=== PATIENT | female | born 1945 | race Caucasian/White ===

== ENCOUNTER 2023-09-28 19:20 | Inpatient (IN) | payer MEDICARE ==
[2023-09-28] MEDS ORDERED: ACETAMINOPHEN TAB 500 MG TAB PO STA (19:45)
--- NOTE | 2023-09-28 20:07 | XR ---
EXAMINATION TYPE: XR chest 2V DATE OF EXAM: 09/28/2023 7:57 PM CLINICAL INDICATION:Female, 78 years old with history of Cough; COMPARISON: None TECHNIQUE: XR chest 2V Frontal and lateral views of the chest. FINDINGS: Lungs/Pleura: Scattered subtle reticular and hazy opacities. No evidence of pneumothorax, focal conso lidation or pleural effusion. Pulmonary vascularity: Unremarkable. Heart/mediastinum: Cardiomediastinal silhouette is unremarkable. Musculoskeletal: No acute osseous pathology. Other findings: None Lines/Tubes: [id number] projecting over the right hemithorax with distal tip at the cavoatrial junction. IMPRESSION: Subtle scattered opacities which may represent an atypical pneumonia versus chronic scarring.
--- NOTE | 2023-09-28 20:25 | ED ---
SOB HPI - General Chief Complaint: Shortness of Breath Stated Complaint: Upper Respiratory Infection Time Seen by Provider: 09/28/23 19:30 Source: patient, EMS, RN notes reviewed Mode of arrival: EMS Limitations: no limitations - History of Present Illness Initial Comments: This is a 78-year-old female who presents to the emergency department for coughing, chest pain, and shortness of breath. Patient was sent over by [facility] for an abnormal chest x-ray. She has been there for about a week for rehab. She was hospitalized for 2 months and states that she is trying to regain her strength. [facility] did a TB test which was negative, however the chest x-ray she had earlier today noted fibrocalcific changes in the left upper lobe, likely residual of tuberculosis. However, they could not exclude active tuberculosis, and she was sent to the emergency department to see if this could be ruled out. She does report coughing, shortness of breath, and left lower rib cage pain for the last 2-3 days. She has not had any blood in her sputum. Denies any known history of tuberculosis. She is immunocompromised with autoimmune hemolytic anemia. States that she treats this with prednisone, 50mg, however Medilokiarae recently ran out. Her hemoglobin typically runs low and she has had multiple blood transfusions because of this. MD Complaint: shortness of breath, cough - Related Data Home Medications Medication Instructions Recorded Confirmed Acetaminophen Tab [Tylenol Tab] 500 mg PO Q8H PRN 09/28/23 09/28/23 Alendronate Sodium [Fosamax] 70 mg PO SA@0500 09/28/23 09/28/23 Apixaban [Eliquis] 5 mg PO BID 09/28/23 09/28/23 Furosemide [Lasix] 20 mg PO DAILY 09/28/23 09/28/23 Guaifenesin/Pseudoephedrne HCl 1 tab PO DIRECTED 09/28/23 09/28/23 [Mucinex D ER 1,200-120 mg Tab] Metoprolol Tartrate [Lopressor] 50 mg PO BID@0700,1900 09/28/23 09/28/23 Multivitamins, Thera [Multivitamin 1 tab PO DAILY 09/28/23 09/28/23 (formulary)] NIFEdipine XL [Procardia Xl] 30 mg PO DAILY 09/28/23 09/28/23 Pantoprazole [Protonix] 40 mg PO BID 09/28/23 09/28/23 Potassium Chloride ER [K-Dur 20] 20 meq PO DIRECTED 09/28/23 09/28/23 Sucralfate [Carafate] 1 gm PO BID@0700,1600 09/28/23 09/28/23 Tamsulosin [Flomax] 0.4 mg PO HS 09/28/23 09/28/23 Allergies Allergy/AdvReac Type Severity Reaction Status Date / Time No Known Allergies Allergy Verified 09/28/23 20:28 Review of Systems ROS Statement: Those systems with pertinent positive or pertinent negative responses have been documented in the HPI. ROS Other: All systems not noted in ROS Statement are negative. Past Medical History Past Medical History: Deep Vein Thrombosis (DVT), Hypertension Past Surgical History: Cholecystectomy Past Alcohol Use History: None Reported Past Drug Use History: None Reported General Exam Limitations: no limitations General appearance: alert, in no apparent distress Head exam: Present: atraumatic, normocephalic, normal inspection Respiratory exam: Present: normal lung sounds bilaterally. Absent: respiratory distress, wheezes, rales, rhonchi, stridor Cardiovascular Exam: Present: regular rate, normal rhythm, normal heart sounds. Absent: systolic murmur, diastolic murmur, rubs, gallop, clicks Neurological exam: Present: alert, oriented X3, CN II-XII intact Psychiatric exam: Present: normal affect, normal mood Skin exam: Present: warm, dry, intact, normal color. Absent: rash Course Vital Signs 09/28/23 09/28/23 19:26 21:05 Temperature 101.9 F H 100.9 F H Pulse Rate 119 H 125 H Respiratory 24 22 Rate Blood Pressure 132/58 102/52 O2 Sat by Pulse 96 95 Oximetry Medical Decision Making - Medical Decision Making This is a 78-year-old female who presents to the emergency department for coughing and shortness of breath. Was pt. sent in by a medical professional or institution? @ -[facility] [place] Did you speak to anyone other than the patient for history? @ -No Did you review nursing and triage notes? @ -Yes, and I agree, it is accurate with regards to the patient's symptoms. Were old charts reviewed? @ -Chest x-ray that the patient had done earlier today stating fibrocalcific changes at the left upper lobe, likely residual of tuberculosis. Active tuberculosis cannot be excluded. Differential Diagnosis? @ -Differential Dyspnea: Coronary syndrome, arrhythmia, tamponade, asthma, COPD, pulmonary embolism, pneumonia, pneumothorax, pulmonary effusion, anaphylaxis, diabetic ketoacidosis, flailed chest, pulmonary contusion, diaphragmatic rupture, anemia, neuromuscular, this is not meant to be an all-inclusive list. EKG interpreted by me (3pts min.)? @ -EKG interpreted by me demonstrating the following: Sinus tachycardia. Ventricular rate 126 beats per minute, [place] interval 129 ms, QRS duration 81 ms, QTC 416 ms. X-rays interpreted by me (1pt min.)? @ -Chest x-ray obtained. My interpretation identifies scattered opacities. CT interpreted by me (1pt min.)? @ -Not obtained U/S interpreted by me (1pt. min.)? @ -Not obtained What testing was considered but not performed? (CT, X-rays, U/S, labs)? Why? @ -None What meds were considered but not given? Why? @ -None Did you discuss the management of the patient with other professionals? @ -Yes, Giuliano Burgess with [facility], who accepts the patient for admission. Did you reconcile home meds? @ -Yes Was smoking cessation discussed for >3mins.? @ -No Was critical care preformed (if so, how long)? @ -No Were there social determinants of health that impacted care today? How? (Homelessness, low income, unemployed, alcoholism, drug addiction, transport ation, low edu. Level, literacy, decrease access to med. care, [facility], rehab)? @ -No Was there de-escalation of care discussed even if they declined? (Discuss DNR or withdrawal of care, Hospice)? @ -No What co-morbidities impacted this encounter? (DM, HTN, Smoking, COPD, CAD, Cancer, CVA, Hep., AIDS, mental health diagnosis, sleep apnea, morbid obesity)? @ -Autoimmune hemolytic anemia, HTN, hx of PE Was patient admitted / discharged? @ -Admitted. Lab work obtained revealing leukocytosis with a white blood cell count of 20.5 and a hemoglobin of 6.6. Patient has a history of autoimmune hemolytic anemia and has required multiple blood transfusions related to this. Currently treats this with prednisone 50 mg daily, which [facility] has recently run out of. One unit of packed red blood cells was ordered along with the patient's dose of prednisone 50 mg. She also has hypokalemia with a potassium of 2.8 and this was replaced with 40 mEq of K-dur. CRP also elevated at 15.8. Chest X-ray reveals subtle scattered opacities suggestive of an atypical pneumonia or chronic scarring. There were no comments on concerns of tuberculosis. Patient tested positive for RSV. She was tachycardic and febrile on arrival. This was treated with IV fluids and Tylenol. Patient admitted to medicine for RSV pneumonia and low hemoglobin level related to autoimmune hemolytic anemia. Given the patient's age with autoimmune status, she was started on antibiotics per the pneumonia protocol in the event there is any bacterial component. Pro-calcitonin ordered with results pending at the time of admission. Undiagnosed new problem with uncertain prognosis? @ -None Drug Therapy requiring intensive monitoring for toxicity (Heparin, Nitro, Insulin, Cardizem)? @ -None Were any procedures done? @ -None Diagnosis/symptom? @ -RSV pneumonia, low hemoglobin, hypokalemia Acute, or Chronic, or Acute on Chronic? @ -Acute Uncomplicated (without systemic symptoms) or Complicated (systemic symptoms)? @ -Complicated Side effects of treatment? @ -None Exacerbation, Progression, or Severe Exacerbation] @ -Not applicable Poses a threat to life or bodily function? @ -Yes This case was discussed in detail with the attending ED physician, Dr. Doty. Presentation, findings, and treatment plan discussed in detail as well. - Lab Data Result diagrams: 09/28/23 20:56 09/28/23 20:56 Lab Results 09/28/23 Range/Units 19:41 Influenza Type A (PCR) Not Detected (Not Detectd) Influenza Type B (PCR) Not Detected (Not Detectd) RSV (PCR) Detected A (Not Detectd) SARS-CoV-2 (PCR) Not Detected (Not Detectd) - Radiology Data Radiology results: report reviewed, image reviewed Disposition Clinical Impression: RSV (respiratory syncytial virus pneumonia), Autoimmune hemolytic anemia, Hypokalemia Disposition: ADMITTED IP TO THIS HOSP
[2023-09-28 21:16] LABS: ALT 17 U/L (4-34); AST 19 U/L (14-36); African American GFR (CKD) >90 (>60 ml/min/1.73 sqM); Albumin 2.7 g/dL (3.5-5.0); Alkaline Phosphatase 122 U/L (38-126); Anion Gap 9 mmol/L; Blood Urea Nitrogen 20 mg/dL (7-17); Calcium 8.2 mg/dL (8.4-10.2); Carbon Dioxide 27 mmol/L (22-30); Chloride 101 mmol/L (98-107); Glucose 100 mg/dL (74-99); Non-African American GFR(CKD) >90 (>60 ml/min/1.73 sqM); Potassium 2.8 mmol/L (3.5-5.1); Sodium 137 mmol/L (137-145); Total Bilirubin 2.8 mg/dL (0.2-1.3)
[2023-09-28 21:29] LABS: C Reactive Protein 15.8 mg/dL (<1.0)
[2023-09-28 21:32] LABS: Anisocytosis Slight; Hypochromasia Slight; MCH 32.8 pg (25.0-35.0); MCHC 34.7 g/dL (31.0-37.0); MCV 94.5 fL (80.0-100.0); Macrocytosis Slight; Mean Platelet Volume 8.4; Platelet Count 381 k/uL (150-450); Poikilocytosis Marked; RBC 2.02 m/uL (3.80-5.40); RDW 19.2 % (11.5-15.5)
[2023-09-28] MEDS ORDERED: POTASSIUM CHLORIDE ER 20 MEQ TAB.ER PO STA (21:32)
[2023-09-28 21:37] LABS: HCT 19.1 % (34.0-46.0); HGB 6.6 gm/dL (11.4-16.0)
[2023-09-28] MEDS ORDERED: NALOXONE 0.4 MG/ML 1 ML VIAL IV PRN (21:52)
[2023-09-28] MEDS ORDERED: HYDROcodone/APAP 5-325MG 1 EACH TAB PO PRN (21:52)
[2023-09-28] MEDS ORDERED: MELATONIN 3 MG TABLET PO PRN (21:52)
[2023-09-28] MEDS ORDERED: ONDANSETRON 4 MG/2 ML VIAL IVP PRN (21:52)
[2023-09-28] MEDS ORDERED: ACETAMINOPHEN TAB 325 MG TAB PO PRN (21:52)
[2023-09-28] MEDS ORDERED: predniSONE 50 MG TAB PO STA (21:53)
[2023-09-28] MEDS ORDERED: PNEUMONIA PROTOCOL UTILIZED 1 EACH MISC PO PRN (21:55)
[2023-09-28] MEDS ORDERED: AZITHROMYCIN 500 MG in SODIUM CHLORIDE 0.9% 250 ML IVPB STA (21:55)
[2023-09-28] MEDS ORDERED: SODIUM CHLORIDE 0.9% 1,000 ML IV STA (21:56)
[2023-09-28 22:00] LABS: Eosinophils # (M) 0.21 k/uL (0-0.7); Lymphocytes # (M) 1.23 k/uL (1.0-4.8); Monocytes # (M) 0.62 k/uL (0-1.0); Neutrophils # (M) 18.45 k/uL (1.3-7.7); Neutrophils % (M) 90 %; Nucleated Red Blood Cells 2 /100 WBC (0-0); Total Cells Counted 100; WBC 20.5 k/uL (3.8-10.6)
[2023-09-28 22:01] LABS: Polychromasia Present; Toxic Vacuolation Present
[2023-09-28 22:02] LABS: Basophilic Stippling Present; Large Platelets Present
[2023-09-28] MEDS ORDERED: ACETAMINOPHEN TAB 500 MG TAB PO PRN (22:22)
[2023-09-28] MEDS ORDERED: APIXABAN 5 MG TAB PO SCH (22:30)
[2023-09-28] MEDS: SODIUM CHLORIDE 0.9% 1,000 ML IV SCH (23:26)
[2023-09-29 01:55] LABS: Appearance,Urine Turbid (Clear); Bacteria,Urine Occasional /hpf; Bilirubin,Urine Negative (Negative); Blood,Urine Small (Negative); Color,Urine Yellow; Glucose,Urine (UA) Negative (Negative); Ketones,Urine Negative (Negative); Leukocyte Esterase,Urine Large (Negative); Mucus,Urine Occasional /hpf; Nitrite,Urine Negative (Negative); Protein,Urine 1+ (Negative); RBC,Urine 9 /hpf (0-5); Specific Gravity,Urine 1.015 (1.001-1.035); Squamous Epithelial Cell,Urine 1 /hpf (0-4); Urobilinogen,Urine <2.0 mg/dL (<2.0); WBC,Urine >182 /hpf (0-5)
[2023-09-29] MEDS ORDERED: NON FORMULARY DRUG (Alendronate Sodium [Fosamax] 70 MG Tablet) PO SCH (05:00)
[2023-09-29] MEDS: PANTOPRAZOLE 40 MG TABLET PO SCH ×2 (06:34→19:06)
[2023-09-29 08:51] LABS: Anisocytosis Slight; Hypochromasia Marked; MCHC 32.3 g/dL (31.0-37.0); MCV 99.1 fL (80.0-100.0); Macrocytosis Slight; Mean Platelet Volume 9.5; Platelet Count 342 k/uL (150-450); Poikilocytosis Moderate; RBC 1.89 m/uL (3.80-5.40); RDW 18.9 % (11.5-15.5)
[2023-09-29 08:55] LABS: HCT 18.7 % (34.0-46.0)
[2023-09-29] MEDS: METOPROLOL TARTRATE 50 MG TAB PO SCH ×2 (09:12→22:11)
[2023-09-29] MEDS: FUROSEMIDE 20 MG TAB PO SCH (09:12)
[2023-09-29] MEDS: SUCRALFATE 1 GM TAB PO SCH ×2 (09:13→22:10)
[2023-09-29] MEDS: POTASSIUM CHLORIDE ER 20 MEQ TAB.ER PO SCH (09:13)
[2023-09-29] MEDS: MULTIVITAMINS, THERA 1 EACH TAB PO SCH (09:13)
[2023-09-29] MEDS: NIFEdipine XL 30 MG TAB.ER.24 PO SCH (09:13)
[2023-09-29] MEDS: AZITHROMYCIN 500 MG TAB PO SCH (10:43)
[2023-09-29 12:17] LABS: Band Neutrophils % 1 %; Lymphocytes # (M) 0.65 k/uL (1.0-4.8); Neutrophils % (M) 94 %; Nucleated Red Blood Cells 1 /100 WBC (0-0); Total Cells Counted 200
[2023-09-29 12:18] LABS: Monocytes # (M) 0.43 k/uL (0-1.0); WBC 21.6 k/uL (3.8-10.6)
[2023-09-29 12:20] LABS: Polychromasia Present
[2023-09-29 12:56] LABS: % Iron Saturation 7.81 (12.00-45.00)
--- NOTE | 2023-09-29 12:57 | P.HPIM ---
History of Present Illness This is a pleasant 78 years old female with multiple medical problems including history of autoimmune hemolytic anemia status post 6-7 times of blood transfusion over the last 3 years, hypertension, deep venous thrombosis on eliquis Patient state that she's been in the [facility]hab for about 2 months because of difficulty walking, improvement as she can get up with health now and she can walk with a walker with little help as well. Both she still needs rehab as she states. She was sent from [facility] for abnormal chest x-ray suspicious for tuberculosis per report which is place and the system now. Patient currently lying in bed on room air, looks comfortable, not tachypnea at rest. She denies dyspnea but she states she has been coughing with clear phlegm for about 3 days About 3 days ago a Beauchamp catheter has placed for her in the rehab but she cannot tell 1. Currently she denies any dysuria urgency, no flank pain or suprapubic pain or tenderness. No headache dizziness weakness or numbness or blurred vision. Patient states that she has history of hemolytic anemia and she received about 67 blood transfusion over the last 2 years and her electronic warfare specialist is Dr. Martines. She denies smoking alcohol or illicit drugs. On admission she had a fever of 101.9. Blood pressure was low normal 102/52, heart rate 99, she is saturating 97% on room air. Echo psychosis 21,000, hemoglobin 6.6 came back down to 6.0. Potassium 2.8, total bilirubin 2.8, AST and ALT are within the reference range. C-reactive protein elevated 15.8 and 4calcitonin 6.7. Folate is 19. Urine analysis looks turbid sample Influenza A and type B, SARS (coronavirus) are and detected, RSV test came back positive Chest x-ray: Septal scattered opacity which may represent an atypical pneumonia versus chronic scarring per neurologist. She was started on Rocephin and Zithromax and emergency room with normal saline at 75 mL/h and she was continued on Eliquis a planned to get one of blood transfusion now Review of Systems Review of systems CONSTITUTIONAL: No fever, no malaise, no fatigue. HEENT: No recent visual problems or hearing problems. Denied any sore throat. CARDIOVASCULAR: No orthopnea, PND, no palpitations, no syncope. PULMONARY: No shortness of breath, no cough, no hemoptysis. GASTROINTESTINAL: No diarrhea, no nausea, no vomiting, no abdominal pain. Normoactive bowel sounds. NEUROLOGICAL: No headaches, no weakness, no numbness. HEMATOLOGICAL: Denies any bleeding or petechiae. GENITOURINARY: Denies any burning micturition, frequency, or urgency. MUSCULOSKELETAL/RHEUMATOLOGICAL: Denies any joint pain, swelling, or any muscle pain. ENDOCRINE: Denies any polyuria or polydipsia. Past Medical History Past Medical History: Deep Vein Thrombosis (DVT), Hypertension Additional Past Medical History / Comment(s): hemolytic anemia History of Any Multi-Drug Resistant Organisms: None Reported Past Surgical History: Cholecystectomy Past Alcohol Use History: None Reported Past Drug Use History: None Reported Medications and Allergies Home Medications Medication Instructions Recorded Confirmed Type Acetaminophen Tab [Tylenol Tab] 500 mg PO Q8H PRN 09/28/23 09/28/23 History Alendronate Sodium [Fosamax] 70 mg PO SA@0500 09/28/23 09/28/23 History Apixaban [Eliquis] 5 mg PO BID 09/28/23 09/28/23 History Furosemide [Lasix] 20 mg PO DAILY 09/28/23 09/28/23 History Guaifenesin/Pseudoephedrne HCl 1 tab PO DIRECTED 09/28/23 09/28/23 History [Mucinex D ER 1,200-120 mg Tab] Metoprolol Tartrate [Lopressor] 50 mg PO BID@0700,1900 09/28/23 09/28/23 History Multivitamins, Thera [Multivitamin 1 tab PO DAILY 09/28/23 09/28/23 History (formulary)] NIFEdipine XL [Procardia Xl] 30 mg PO DAILY 09/28/23 09/28/23 History Pantoprazole [Protonix] 40 mg PO BID 09/28/23 09/28/23 History Potassium Chloride ER [K-Dur 20] 20 meq PO DIRECTED 09/28/23 09/28/23 History Sucralfate [Carafate] 1 gm PO BID@0700,1600 09/28/23 09/28/23 History Tamsulosin [Flomax] 0.4 mg PO HS 09/28/23 09/28/23 History Allergies Allergy/AdvReac Type Severity Reaction Status Date / Time No Known Allergies Allergy Verified 09/28/23 20:28 Physical Exam Vitals: Vital Signs Temp Pulse Pulse Resp BP BP BP 09/29/23 08:26 09/29/23 07:50 97.8 F 102 H 15 113/67 09/29/23 02:00 97.6 F 92 16 106/65 09/29/23 01:45 18 09/28/23 23:30 98 18 112/62 09/28/23 23:20 98.8 F 99 18 109/54 09/28/23 22:30 104 H 20 98/48 09/28/23 22:00 113 H 20 95/49 09/28/23 21:30 118 H 20 99/48 09/28/23 21:05 100.9 F H 125 H 22 102/52 09/28/23 19:45 24 09/28/23 19:26 101.9 F H 119 H 24 132/58 Pulse Ox 09/29/23 08:26 96 09/29/23 07:50 97 09/29/23 02:00 96 09/29/23 01:45 09/28/23 23:30 97 09/28/23 23:20 97 09/28/23 22:30 95 09/28/23 22:00 95 09/28/23 21:30 95 09/28/23 21:05 95 09/28/23 19:45 09/28/23 19:26 96 Intake and Output 09/28/23 09/29/23 09/29/23 22:59 06:59 14:59 Output Total 700 Balance -700 Output: Urine 700 Other: Voiding Method Indwelling Catheter # Voids 450 Weight 70.307 kg GENERAL: The patient is alert and oriented x3, not in any acute distress. Well developed, well nourished. HEENT: Pupils are round and equally reacting to light. EOMI. No scleral icterus. No conjunctival pallor. Normocephalic, atraumatic. No pharyngeal erythema. No thyromegaly. CARDIOVASCULAR: S1 and S2 present. No murmurs, rubs, or gallops. -PULMONARY: Chest is clear to auscultation, no wheezing , no crackles. Bila teral bronchial breath sounds and scattered crepitation -ABDOMEN: Soft, nontender, nondistended, normoactive bowel sounds. No palpable organomegaly. Beauchamp catheter in place- MUSCULOSKELETAL: No joint swelling or deformity. EXTREMITIES: No cyanosis, clubbing, or pedal edema. NEUROLOGICAL: Gross neurological examination did not reveal any focal deficits. SKIN: No rashes. no petechiae. Results CBC & Chem 7: 09/29/23 06:25 09/28/23 20:56 Labs: Abnormal Lab Results - Last 24 Hours (Table) 09/28/23 09/28/23 09/28/23 Range/Units 19:41 20:56 20:56 WBC 20.5 H (3.8-10.6) k/uL RBC 2.02 L (3.80-5.40) m/uL Hgb 6.6 L* (11.4-16.0) gm/dL Hct 19.1 L* (34.0-46.0) % RDW 19.2 H (11.5-15.5) % Neutrophils # (Manual) 18.45 H (1.3-7.7) k/uL Nucleated RBCs 2 H (0-0) /100 WBC Potassium 2.8 L (3.5-5.1) mmol/L BUN 20 H (7-17) mg/dL Creatinine 0.50 L (0.52-1.04) mg/dL Glucose 100 H (74-99) mg/dL Calcium 8.2 L (8.4-10.2) mg/dL Total Bilirubin 2.8 H (0.2-1.3) mg/dL C-Reactive Protein 15.8 H (<1.0) mg/dL Total Protein 5.0 L (6.3-8.2) g/dL Albumin 2.7 L (3.5-5.0) g/dL Procalcitonin (0.02-0.09) ng/mL Urine Appearance (Clear) Urine Protein (Negative) Urine Blood (Negative) Ur Leukocyte Esterase (Negative) Urine RBC (0-5) /hpf Urine WBC (0-5) /hpf Urine WBC Clumps (None) /hpf Urine Bacteria (None) /hpf Urine Mucus (None) /hpf RSV (PCR) Detected A (Not Detectd) Crossmatch 09/28/23 09/28/23 09/29/23 Range/Units 20:56 23:00 00:42 WBC (3.8-10.6) k/uL RBC (3.80-5.40) m/uL Hgb (11.4-16.0) gm/dL Hct (34.0-46.0) % RDW (11.5-15.5) % Neutrophils # (Manual) (1.3-7.7) k/uL Nucleated RBCs (0-0) /100 WBC Potassium (3.5-5.1) mmol/L BUN (7-17) mg/dL Creatinine (0.52-1.04) mg/dL Glucose (74-99) mg/dL Calcium (8.4-10.2) mg/dL Total Bilirubin (0.2-1.3) mg/dL C-Reactive Protein (<1.0) mg/dL Total Protein (6.3-8.2) g/dL Albumin (3.5-5.0) g/dL Procalcitonin 6.76 H (0.02-0.09) ng/mL Urine Appearance Turbid H (Clear) Urine Protein 1+ H (Negative) Urine Blood Small H (Negative) Ur Leukocyte Esterase Large H (Negative) Urine RBC 9 H (0-5) /hpf Urine WBC >182 H (0-5) /hpf Urine WBC Clumps Many H (None) /hpf Urine Bacteria Occasional H (None) /hpf Urine Mucus Occasional H (None) /hpf RSV (PCR) (Not Detectd) Crossmatch See Detail 09/29/23 Range/Units 02:00 WBC (3.8-10.6) k/uL RBC (3.80-5.40) m/uL Hgb (11.4-16.0) gm/dL Hct (34.0-46.0) % RDW (11.5-15.5) % Neutrophils # (Manual) (1.3-7.7) k/uL Nucleated RBCs (0-0) /100 WBC Potassium (3.5-5.1) mmol/L BUN (7-17) mg/dL Creatinine (0.52-1.04) mg/dL Glucose (74-99) mg/dL Calcium (8.4-10.2) mg/dL Total Bilirubin (0.2-1.3) mg/dL C-Reactive Protein (<1.0) mg/dL Total Protein (6.3-8.2) g/dL Albumin (3.5-5.0) g/dL Procalcitonin (0.02-0.09) ng/mL Urine Appearance (Clear) Urine Protein (Negative) Urine Blood (Negative) Ur Leukocyte Esterase (Negative) Urine RBC (0-5) /hpf Urine WBC (0-5) /hpf Urine WBC Clumps (None) /hpf Urine Bacteria (None) /hpf Urine Mucus (None) /hpf RSV (PCR) (Not Detectd) Crossmatch See Detail Thrombosis Risk Factor Assmnt - Choose All That Apply Any of the Below Risk Factors Present?: Yes Each Factor Represents 1 point: Swollen legs (current) Other Risk Factors: Yes Each Risk Factor Represents 3 Points: Age 75 years or older Thrombosis Risk Factor Assessment Total Risk Factor Score: 4 Thrombosis Risk Factor Assessment Level: Moderate Risk Assessment and Plan Assessment: Sepsis with fever and leukocytosis Bilateral atypical pneumonia, versus healthcare associated pneumonia h/o deep venous thrombosis on eliquis Abnormal urine analysis most likely asymptomatic bacteriuria associated with Beauchamp catheter Possible recent history of urinary retention status post Beauchamp catheter about 3- 4 days prior to this hospitalization Plan: Continue with antibiotic, we'll going to consult infectious disease team for antibiotic management Continue with normal saline 75 mL/h Anemia workup Given 2 units of blood transfusion and monitor hemoglobin. Electrolytes per protocol Hematology disease consult Continue with Beauchamp catheter Labs and medication were reviewed.. Continue same treatment. Continue with symptomatic treatment. Resume home medication. Monitor labs and vitals. DVT and GI prophylaxis. Further recommendations as per clinical course of the patient DVT prophylaxis: SCD GI Prophylaxis: PPI Prognosis is guarded
[2023-09-29 13:53] LABS: ALT 16 U/L (8-44); AST 28 U/L (13-35); Albumin 2.9 g/dL (3.8-4.9); Albumin/Globulin Ratio 1.71 Ratio (1.60-3.17); Alkaline Phosphatase 117 U/L (41-126); Bilirubin, Conjugated 0.66 mg/dL (0.20-0.40); Bilirubin,Unconjugated 0.94 mg/dL (0.20-1.00); Blood Urea Nitrogen 17.1 mg/dL (9.0-27.0); Carbon Dioxide 24.7 mmol/L (21.6-31.8); Chloride 107 mmol/L (96-109); Globulin 1.7 g/dL (1.6-3.3); Glucose 152 mg/dL (70-110); Potassium 3.7 mmol/L (3.5-5.5); Sodium 142 mmol/L (135-145); Total Bilirubin 1.6 mg/dL (0.3-1.2); Total Protein 4.6 g/dL (6.2-8.2)
--- NOTE | 2023-09-29 19:38 | P.CONS ---
History of Present Illness - Reason for Consult Consult date: 09/29/23 severe anemia, AIHA and DVT on eliquis Requesting physician: Dion E Sheet - Chief Complaint SOB, CBC at [facility] with severe anemia - History of Present Illness Ms. Garcia is a very pleasant 78-year-old female with multiple comorbidities including AIHA adn DVT on Eliquis, follows with Dr. Cadet and on prednisone 5- 10mg daily at baseline with monthly IVIG for AIHA control, as well as other comorbidites, who was recently hospitalized for surgery for ulceration and dsicharged to [facility] due to prolonged hospitalization and resulting weakness. She was feeling increased weakness and blood work was done which revealed significant anemia which prompted her ER visit. She also had a chest x-ray at outside facility for cough that was suspicious for TB. She comes here and the chest x-ray was repeated which showed scattered opacities concerning for atypical pneumonia versus scarring. Blood work revealed severe hypokalemia with a potassium of 2.8, improved to 3.7 with supplementation. Her hemoglobin was 6.6 and transfusion was ordered however due to her underlying hemolytic anemia a match has not been found in a repeat hemoglobin was 6.0. Her haptoglobin was 37, normal creatinine of 0.5. Her bilirubin was elevated at 2.8, mostly unconjugated. Iron at 128, present saturation, ferritin 4300. Her B12 and folate were normal. Reticulocyte count high 9 with an MCV of 90. Infectious work up including Covid influenza were negative however cars he was positive. She was admitted for further management of her severe anemia and URI with RSV. States that she was possibly taking prednisone 50 mg rehab however a baseline her hemolytic anemia is usually controlled on prednisone 510 milligrams daily. She has not been able to be off of prednisone. She does feel weak with her severe anemia. Past Medical History Past Medical History: Deep Vein Thrombosis (DVT), Hypertension Additional Past Medical History / Comment(s): hemolytic anemia History of Any Multi-Drug Resistant Organisms: None Reported Past Surgical History: Cholecystectomy Past Alcohol Use History: None Reported Past Drug Use History: None Reported Medications and Allergies Home Medications Medication Instructions Recorded Confirmed Type Acetaminophen Tab [Tylenol Tab] 500 mg PO Q8H PRN 09/28/23 09/28/23 History Alendronate Sodium [Fosamax] 70 mg PO SA@0500 09/28/23 09/28/23 History Apixaban [Eliquis] 5 mg PO BID 09/28/23 09/28/23 History Furosemide [Lasix] 20 mg PO DAILY 09/28/23 09/28/23 History Guaifenesin/Pseudoephedrne HCl 1 tab PO DIRECTED 09/28/23 09/28/23 History [Mucinex D ER 1,200-120 mg Tab] Metoprolol Tartrate [Lopressor] 50 mg PO BID@0700,1900 09/28/23 09/28/23 History Multivitamins, Thera [Multivitamin 1 tab PO DAILY 09/28/23 09/28/23 History (formulary)] NIFEdipine XL [Procardia Xl] 30 mg PO DAILY 09/28/23 09/28/23 History Pantoprazole [Protonix] 40 mg PO BID 09/28/23 09/28/23 History Potassium Chloride ER [K-Dur 20] 20 meq PO DIRECTED 09/28/23 09/28/23 History Sucralfate [Carafate] 1 gm PO BID@0700,1600 09/28/23 09/28/23 History Tamsulosin [Flomax] 0.4 mg PO HS 09/28/23 09/28/23 History Allergies Allergy/AdvReac Type Severity Reaction Status Date / Time No Known Allergies Allergy Verified 09/28/23 20:28 Physical Exam Vitals: Vital Signs Temp Pulse Pulse Resp BP BP BP 09/29/23 14:45 97.6 F 91 16 103/62 09/29/23 08:26 09/29/23 07:50 97.8 F 102 H 15 113/67 09/29/23 02:00 97.6 F 92 16 106/65 09/29/23 01:45 18 09/28/23 23:30 98 18 112/62 09/28/23 23:20 98.8 F 99 18 109/54 09/28/23 22:30 104 H 20 98/48 09/28/23 22:00 113 H 20 95/49 09/28/23 21:30 118 H 20 99/48 09/28/23 21:05 100.9 F H 125 H 22 102/52 09/28/23 19:45 24 09/28/23 19:26 101.9 F H 119 H 24 132/58 Pulse Ox 09/29/23 14:45 96 12/16/23 08:26 96 09/29/23 07:50 97 09/29/23 02:00 96 09/29/23 01:45 09/28/23 23:30 97 09/28/23 23:20 97 09/28/23 22:30 95 09/28/23 22:00 95 09/28/23 21:30 95 09/28/23 21:05 95 09/28/23 19:45 09/28/23 19:26 96 Intake and Output 09/29/23 09/29/23 09/29/23 06:59 14:59 22:59 Intake Total 193 Output Total 700 Balance -700 193 Intake: Oral 193 Output: Urine 700 Other: Voiding Method Indwelling Catheter Indwelling Catheter # Voids 450 # Bowel Movements 1 Patient appears in no acute distress. Intermittent coughing during our interview, otherwise no respiratory distress. No overt jaundice. Alert and oriented 3. Results CBC & Chem 7: 09/29/23 06:25 09/29/23 06:25 Labs: Abnormal Lab Results - Last 24 Hours (Table) 09/28/23 09/28/23 09/28/23 Range/Units 19:41 20:56 20:56 WBC 20.5 H (3.8-10.6) k/uL RBC 2.02 L (3.80-5.40) m/uL Hgb 6.6 L* (11.4-16.0) gm/dL Hct 19.1 L* (34.0-46.0) % RDW 19.2 H (11.5-15.5) % Neutrophils # (Manual) 18.45 H (1.3-7.7) k/uL Lymphocytes # (Manual) (1.0-4.8) k/uL Nucleated RBCs 2 H (0-0) /100 WBC Retic Count (0.5-2.0) % Potassium 2.8 L (3.5-5.1) mmol/L BUN 20 H (7-17) mg/dL Creatinine 0.50 L (0.52-1.04) mg/dL BUN/Creatinine Ratio (12.00-20.00) Ratio Glucose 100 H (74-99) mg/dL Calcium 8.2 L (8.4-10.2) mg/dL Iron (50-170) UG/DL TIBC (228-460) UG/DL % Saturation (12.00-45.00) Transferrin (204.0-354.0) mg/dL Ferritin (10.0-291.0) ng/mL Total Bilirubin 2.8 H (0.2-1.3) mg/dL Conjugated Bilirubin (0.20-0.40) mg/dL C-Reactive Protein 15.8 H (<1.0) mg/dL Total Protein 5.0 L (6.3-8.2) g/dL Albumin 2.7 L (3.5-5.0) g/dL Vitamin B12 (200.0-944.0) pg/mL Procalcitonin (0.02-0.09) ng/mL Urine Appearance (Clear) Urine Protein (Negative) Urine Blood (Negative) Ur Leukocyte Esterase (Negative) Urine RBC (0-5) /hpf Urine WBC (0-5) /hpf Urine WBC Clumps (None) /hpf Urine Bacteria (None) /hpf Urine Mucus (None) /hpf RSV (PCR) Detected A (Not Detectd) Crossmatch 09/28/23 09/28/23 09/29/23 Range/Units 20:56 23:00 00:03 WBC (3.8-10.6) k/uL RBC (3.80-5.40) m/uL Hgb (11.4-16.0) gm/dL Hct (34.0-46.0) % RDW (11.5-15.5) % Neutrophils # (Manual) (1.3-7.7) k/uL Lymphocytes # (Manual) (1.0-4.8) k/uL Nucleated RBCs (0-0) /100 WBC Retic Count (0.5-2.0) % Potassium (3.5-5.1) mmol/L BUN (7-17) mg/dL Creatinine (0.52-1.04) mg/dL BUN/Creatinine Ratio (12.00-20.00) Ratio Glucose (74-99) mg/dL Calcium (8.4-10.2) mg/dL Iron 10 L (50-170) UG/DL TIBC 128 L (228-460) UG/DL % Saturation 7.81 L (12.00-45.00) Transferrin 91.2 L (204.0-354.0) mg/dL Ferritin 4322.0 H (10.0-291.0) ng/mL Total Bilirubin (0.2-1.3) mg/dL Conjugated Bilirubin (0.20-0.40) mg/dL C-Reactive Protein (<1.0) mg/dL Total Protein (6.3-8.2) g/dL Albumin (3.5-5.0) g/dL Vitamin B12 1031.0 H (200.0-944.0) pg/mL Procalcitonin 6.76 H (0.02-0.09) ng/mL Urine Appearance (Clear) Urine Protein (Negative) Urine Blood (Negative) Ur Leukocyte Esterase (Negative) Urine RBC (0-5) /hpf Urine WBC (0-5) /hpf Urine WBC Clumps (None) /hpf Urine Bacteria (None) /hpf Urine Mucus (None) /hpf RSV (PCR) (Not Detectd) Crossmatch See Detail 09/29/23 09/29/23 09/29/23 Range/Units 00:42 02:00 06:25 WBC 21.6 H (3.8-10.6) k/uL RBC 1.89 L (3.80-5.40) m/uL Hgb 6.0 L* (11.4-16.0) gm/dL Hct 18.7 L* (34.0-46.0) % RDW 18.9 H (11.5-15.5) % Neutrophils # (Manual) 20.50 H (1.3-7.7) k/uL Lymphocytes # (Manual) 0.65 L (1.0-4.8) k/uL Nucleated RBCs 1 H (0-0) /100 WBC Retic Count (0.5-2.0) % Potassium (3.5-5.1) mmol/L BUN (7-17) mg/dL Creatinine (0.52-1.04) mg/dL BUN/Creatinine Ratio (12.00-20.00) Ratio Glucose (74-99) mg/dL Calcium (8.4-10.2) mg/dL Iron (50-170) UG/DL TIBC (228-460) UG/DL % Saturation (12.00-45.00) Transferrin (204.0-354.0) mg/dL Ferritin (10.0-291.0) ng/mL Total Bilirubin (0.2-1.3) mg/dL Conjugated Bilirubin (0.20-0.40) mg/dL C-Reactive Protein (<1.0) mg/dL Total Protein (6.3-8.2) g/dL Albumin (3.5-5.0) g/dL Vitamin B12 (200.0-944.0) pg/mL Procalcitonin (0.02-0.09) ng/mL Urine Appearance Turbid H (Clear) Urine Protein 1+ H (Negative) Urine Blood Small H (Negative) Ur Leukocyte Esterase Large H (Negative) Urine RBC 9 H (0-5) /hpf Urine WBC >182 H (0-5) /hpf Urine WBC Clumps Many H (None) /hpf Urine Bacteria Occasional H (None) /hpf Urine Mucus Occasional H (None) /hpf RSV (PCR) (Not Detectd) Crossmatch See Detail 09/29/23 09/29/23 Range/Units 06:25 06:25 WBC (3.8-10.6) k/uL RBC (3.80-5.40) m/uL Hgb (11.4-16.0) gm/dL Hct (34.0-46.0) % RDW (11.5-15.5) % Neutrophils # (Manual) (1.3-7.7) k/uL Lymphocytes # (Manual) (1.0-4.8) k/uL Nucleated RBCs (0-0) /100 WBC Retic Count 9.0 H (0.5-2.0) % Potassium (3.5-5.1) mmol/L BUN (7-17) mg/dL Creatinine 0.5 L (0.52-1.04) mg/dL BUN/Creatinine Ratio 34.20 H (12.00-20.00) Ratio Glucose 152 H (74-99) mg/dL Calcium 8.0 L (8.4-10.2) mg/dL Iron (50-170) UG/DL TIBC (228-460) UG/DL % Saturation (12.00-45.00) Transferrin (204.0-354.0) mg/dL Ferritin (10.0-291.0) ng/mL Total Bilirubin 1.6 H (0.2-1.3) mg/dL Conjugated Bilirubin 0.66 H (0.20-0.40) mg/dL C-Reactive Protein (<1.0) mg/dL Total Protein 4.6 L (6.3-8.2) g/dL Albumin 2.9 L (3.5-5.0) g/dL Vitamin B12 (200.0-944.0) pg/mL Procalcitonin (0.02-0.09) ng/mL Urine Appearance (Clear) Urine Protein (Negative) Urine Blood (Negative) Ur Leukocyte Esterase (Negative) Urine RBC (0-5) /hpf Urine WBC (0-5) /hpf Urine WBC Clumps (None) /hpf Urine Bacteria (None) /hpf Urine Mucus (None) /hpf RSV (PCR) (Not Detectd) Crossmatch Assessment and Plan Assessment: 1. RSV infection with pneumonia 2. Autoimmune hemolytic anemia with severe anemia, likely due to a flare of her hemolytic anemia which is likely due to recent URI infection 3. Electrolyte deficiency 4. History of DVT on anticoagulation Plan: Ms. Garcia is a very pleasant 78-year-old female with history of multiple comorbidities including autoimmune hemolytic anemia and DVT on Eliquis, who is here for weakness and cough at rehab, evaluation for this revealing possible TB on chest x-ray and severe anemia. - I suspect her severe anemia is due to hemolytic anemia and doubt that she would benefit from transfusion -We'll start her on prednisone 1 mg/kg (70 mg) and consider giving solumedrol 1gm daily x 3 d if she Hgb continues to trend down, however for now will avoid high dose steroids due to concern for bacterial infection -Monitor CBC and monitor for bleeding -Electrolyte derangement, being supplemented -RSV URI with likely PNA, pt also on antibiotics for PNA - I suspect RSV flared her AIHA -She mentions getting monthly IVIG, will consider IVIG if she does not respond to steroids, however I would like to obtain records from her knitter mechanic to clarify why she receives IVIG monthly, ?hypogammaglobulinemia and to prevent infection or truly for AIHA as pt states? Discussed with patient she is agreeable to the plan. All of her questions were answered.
[2023-09-29] MEDS: guaiFENesin-DM 100-10MG/5ML 10 ML CUP PO PRN (22:10)
[2023-09-29] MEDS: TAMSULOSIN 0.4 MG CAP.ER.24H PO SCH (22:10)
[2023-09-29] MEDS: predniSONE 20 MG TAB PO SCH (22:11)
[2023-09-29] MEDS: SODIUM CHLORIDE 0.9% 1,000 ML IV SCH ×2 (22:13→23:34)
--- NOTE | 2023-09-29 23:07 | P.CONS ---
History of Present Illness - Reason for Consult Consult date: 09/29/23 - History of Present Illness Patient is a 78-year-old female with a past medical history significant for autoimmune hemolytic anemia DVT hypertension apparently the patient did have a prolonged hospitalization at [facility] and subsequently patient was transferred to the local long term patient ap parently did have x-ray done at the long term which was read as fibril calcific changes in the left upper lobe likely residual tuberculosis cannot exclude active tuberculosis and when she has a negative skin test for TB patient has been sent to the ER to see the patient again to rule out for tuberculosis patient will presentation to the hospital have a fever of 101.9 F patient was tachycardic not hypotensive or hypoxic patient did have a white count of 20,000 hemoglobin was 6.6 did have a left shift creatinine was normal liver enzymes are normal procalcitonin 6.76 she also have a indwelling Beauchamp catheter. Recently placed at the long term about 3 days ago and did have a positive UA patient did have a RSV PCR came back positive influenza COVID and Legionella was negative patient did have a chest x-ray scheduled opacity which may represent atypical pneumonia versus chronic scarring infectious disease was consulted for further management patient is currently breathing comfortably on room air patient denies having any chest pain she did have a cough mild to moderate intensity not bringing up any sputum. Denies having any nausea no vomiting no abdominal pain no diarrhea, did not recall any exposure to TB denies having any night sweats chronic cough or hemoptysis Past Medical History Past Medical History: Deep Vein Thrombosis (DVT), Hypertension Additional Past Medical History / Comment(s): hemolytic anemia History of Any Multi-Drug Resistant Organisms: None Reported Past Surgical History: Cholecystectomy Past Alcohol Use History: None Reported Past Drug Use History: None Reported Medications and Allergies Home Medications Medication Instructions Recorded Confirmed Type Acetaminophen Tab [Tylenol Tab] 500 mg PO Q8H PRN 09/28/23 09/28/23 History Alendronate Sodium [Fosamax] 70 mg PO SA@0500 09/28/23 09/28/23 History Apixaban [Eliquis] 5 mg PO BID 09/28/23 09/28/23 History Furosemide [Lasix] 20 mg PO DAILY 09/28/23 09/28/23 History Guaifenesin/Pseudoephedrne HCl 1 tab PO DIRECTED 09/28/23 09/28/23 History [Mucinex D ER 1,200-120 mg Tab] Metoprolol Tartrate [Lopressor] 50 mg PO BID@0700,1900 09/28/23 09/28/23 History Multivitamins, Thera [Multivitamin 1 tab PO DAILY 09/28/23 09/28/23 History (formulary)] NIFEdipine XL [Procardia Xl] 30 mg PO DAILY 09/28/23 09/28/23 History Pantoprazole [Protonix] 40 mg PO BID 09/28/23 09/28/23 History Potassium Chloride ER [K-Dur 20] 20 meq PO DIRECTED 09/28/23 09/28/23 History Sucralfate [Carafate] 1 gm PO BID@0700,1600 09/28/23 09/28/23 History Tamsulosin [Flomax] 0.4 mg PO HS 09/28/23 09/28/23 History Allergies Allergy/AdvReac Type Severity Reaction Status Date / Time No Known Allergies Allergy Verified 09/28/23 20:28 Physical Exam Vitals: Vital Signs Temp Pulse Pulse Resp BP BP BP 09/29/23 08:26 09/29/23 07:50 97.8 F 102 H 15 113/67 09/29/23 02:00 97.6 F 92 16 106/65 09/29/23 01:45 18 09/28/23 23:30 98 18 112/62 09/28/23 23:20 98.8 F 99 18 109/54 09/28/23 22:30 104 H 20 98/48 09/28/23 22:00 113 H 20 95/49 09/28/23 21:30 118 H 20 99/48 09/28/23 21:05 100.9 F H 125 H 22 102/52 09/28/23 19:45 24 09/28/23 19:26 101.9 F H 119 H 24 132/58 Pulse Ox 09/29/23 08:26 96 09/29/23 07:50 97 09/29/23 02:00 96 09/29/23 01:45 09/28/23 23:30 97 09/28/23 23:20 97 09/28/23 22:30 95 09/28/23 22:00 95 09/28/23 21:30 95 09/28/23 21:05 95 09/28/23 19:45 09/28/23 19:26 96 Intake and Output 09/28/23 09/29/23 09/29/23 22:59 06:59 14:59 Intake Total 118 Output Total 700 Balance -700 118 Intake: Oral 118 Output: Urine 700 Other: Voiding Method Indwelling Catheter # Voids 450 # Bowel Movements 1 Weight 70.307 kg Results CBC & Chem 7: 09/29/23 06:25 09/29/23 06:25 Labs: Abnormal Lab Results - Last 24 Hours (Table) 09/28/23 09/28/23 09/28/23 Range/Units 19:41 20:56 20:56 WBC 20.5 H (3.8-10.6) k/uL RBC 2.02 L (3.80-5.40) m/uL Hgb 6.6 L* (11.4-16.0) gm/dL Hct 19.1 L* (34.0-46.0) % RDW 19.2 H (11.5-15.5) % Neutrophils # (Manual) 18.45 H (1.3-7.7) k/uL Lymphocytes # (Manual) (1.0-4.8) k/uL Nucleated RBCs 2 H (0-0) /100 WBC Retic Count (0.5-2.0) % Potassium 2.8 L (3.5-5.1) mmol/L BUN 20 H (7-17) mg/dL Creatinine 0.50 L (0.52-1.04) mg/dL BUN/Creatinine Ratio (12.00-20.00) Ratio Glucose 100 H (74-99) mg/dL Calcium 8.2 L (8.4-10.2) mg/dL Iron (50-170) UG/DL TIBC (228-460) UG/DL % Saturation (12.00-45.00) Transferrin (204.0-354.0) mg/dL Ferritin (10.0-291.0) ng/mL Total Bilirubin 2.8 H (0.2-1.3) mg/dL Conjugated Bilirubin (0.20-0.40) mg/dL C-Reactive Protein 15.8 H (<1.0) mg/dL Total Protein 5.0 L (6.3-8.2) g/dL Albumin 2.7 L (3.5-5.0) g/dL Vitamin B12 (200.0-944.0) pg/mL Procalcitonin (0.02-0.09) ng/mL Urine Appearance (Clear) Urine Protein (Negative) Urine Blood (Negative) Ur Leukocyte Esterase (Negative) Urine RBC (0-5) /hpf Urine WBC (0-5) /hpf Urine WBC Clumps (None) /hpf Urine Bacteria (None) /hpf Urine Mucus (None) /hpf RSV (PCR) Detected A (Not Detectd) Crossmatch 09/28/23 09/28/23 09/29/23 Range/Units 20:56 23:00 00:03 WBC (3.8-10.6) k/uL RBC (3.80-5.40) m/uL Hgb (11.4-16.0) gm/dL Hct (34.0-46.0) % RDW (11.5-15.5) % Neutrophils # (Manual) (1.3-7.7) k/uL Lymphocytes # (Manual) (1.0-4.8) k/uL Nucleated RBCs (0-0) /100 WBC Retic Count (0.5-2.0) % Potassium (3.5-5.1) mmol/L BUN (7-17) mg/dL Creatinine (0.52-1.04) mg/dL BUN/Creatinine Ratio (12.00-20.00) Ratio Glucose (74-99) mg/dL Calcium (8.4-10.2) mg/dL Iron 10 L (50-170) UG/DL TIBC 128 L (228-460) UG/DL % Saturation 7.81 L (12.00-45.00) Transferrin 91.2 L (204.0-354.0) mg/dL Ferritin 4322.0 H (10.0-291.0) ng/mL Total Bilirubin (0.2-1.3) mg/dL Conjugated Bilirubin (0.20-0.40) mg/dL C-Reactive Protein (<1.0) mg/dL Total Protein (6.3-8.2) g/dL Albumin (3.5-5.0) g/dL Vitamin B12 1031.0 H (200.0-944.0) pg/mL Procalcitonin 6.76 H (0.02-0.09) ng/mL Urine Appearance (Clear) Urine Protein (Negative) Urine Blood (Negative) Ur Leukocyte Esterase (Negative) Urine RBC (0-5) /hpf Urine WBC (0-5) /hpf Urine WBC Clumps (None) /hpf Urine Bacteria (None) /hpf Urine Mucus (None) /hpf RSV (PCR) (Not Detectd) Crossmatch See Detail 09/29/23 09/29/23 09/29/23 Range/Units 00:42 02:00 06:25 WBC 21.6 H (3.8-10.6) k/uL RBC 1.89 L (3.80-5.40) m/uL Hgb 6.0 L* (11.4-16.0) gm/dL Hct 18.7 L* (34.0-46.0) % RDW 18.9 H (11.5-15.5) % Neutrophils # (Manual) 20.50 H (1.3-7.7) k/uL Lymphocytes # (Manual) 0.65 L (1.0-4.8) k/uL Nucleated RBCs 1 H (0-0) /100 WBC Retic Count (0.5-2.0) % Potassium (3.5-5.1) mmol/L BUN (7-17) mg/dL Creatinine (0.52-1.04) mg/dL BUN/Creatinine Ratio (12.00-20.00) Ratio Glucose (74-99) mg/dL Calcium (8.4-10.2) mg/dL Iron (50-170) UG/DL TIBC (228-460) UG/DL % Saturation (12.00-45.00) Transferrin (204.0-354.0) mg/dL Ferritin (10.0-291.0) ng/mL Total Bilirubin (0.2-1.3) mg/dL Conjugated Bilirubin (0.20-0.40) mg/dL C-Reactive Protein (<1.0) mg/dL Total Protein (6.3-8.2) g/dL Albumin (3.5-5.0) g/dL Vitamin B12 (200.0-944.0) pg/mL Procalcitonin (0.02-0.09) ng/mL Urine Appearance Turbid H (Clear) Urine Protein 1+ H (Negative) Urine Blood Small H (Negative) Ur Leukocyte Esterase Large H (Negative) Urine RBC 9 H (0-5) /hpf Urine WBC >182 H (0-5) /hpf Urine WBC Clumps Many H (None) /hpf Urine Bacteria Occasional H (None) /hpf Urine Mucus Occasional H (None) /hpf RSV (PCR) (Not Detectd) Crossmatch See Detail 09/29/23 09/29/23 Range/Units 06:25 06:25 WBC (3.8-10.6) k/uL RBC (3.80-5.40) m/uL Hgb (11.4-16.0) gm/dL Hct (34.0-46.0) % RDW (11.5-15.5) % Neutrophils # (Manual) (1.3-7.7) k/uL Lymphocytes # (Manual) (1.0-4.8) k/uL Nucleated RBCs (0-0) /100 WBC Retic Count 9.0 H (0.5-2.0) % Potassium (3.5-5.1) mmol/L BUN (7-17) mg/dL Creatinine 0.5 L (0.52-1.04) mg/dL BUN/Creatinine Ratio 34.20 H (12.00-20.00) Ratio Glucose 152 H (74-99) mg/dL Calcium 8.0 L (8.4-10.2) mg/dL Iron (50-170) UG/DL TIBC (228-460) UG/DL % Saturation (12.00-45.00) Transferrin (204.0-354.0) mg/dL Ferritin (10.0-291.0) ng/mL Total Bilirubin 1.6 H (0.2-1.3) mg/dL Conjugated Bilirubin 0.66 H (0.20-0.40) mg/dL C-Reactive Protein (<1.0) mg/dL Total Protein 4.6 L (6.3-8.2) g/dL Albumin 2.9 L (3.5-5.0) g/dL Vitamin B12 (200.0-944.0) pg/mL Procalcitonin (0.02-0.09) ng/mL Urine Appearance (Clear) Urine Protein (Negative) Urine Blood (Negative) Ur Leukocyte Esterase (Negative) Urine RBC (0-5) /hpf Urine WBC (0-5) /hpf Urine WBC Clumps (None) /hpf Urine Bacteria (None) /hpf Urine Mucus (None) /hpf RSV (PCR) (Not Detectd) Crossmatch Assessment and Plan Plan: 1patient presented hospital with sepsis in this patient who did have a fever t achycardia elevated white count patient did have a cough along with abnormal x- ray concerning for possible pneumonia with a likely to allergies versus a catheter associated UTI patient did tested positive for RSV more likely contributing to some of her symptoms 2-we will try to obtain a sputum for Gram stain and culture 3-check a CT of the chest for better definition abnormality seen on the chest x- ray 4-continue patient on Rocephin and Zithromax We will follow on clinical condition and cultures to further adjust medication if needed Thank you for this consultation we will follow the patient along with you Dictation was produced using [employer] dictation software. please excuse any grammatical, word or spelling errors. Time with Patient: Greater than 30
[2023-09-29] MEDS ORDERED: RX INFO: IV CONTRAST WAS GIVEN 1 EACH MISC MISCELLANE PRN (23:08)
[2023-09-29] MEDS: MEROPENEM 1 GM in SODIUM CHLORIDE 0.9% 100 ML IVPB SCH (23:31)
[2023-09-30] MEDS: PANTOPRAZOLE 40 MG TABLET PO SCH ×2 (06:14→15:57)
[2023-09-30] MEDS: MEROPENEM 1 GM in SODIUM CHLORIDE 0.9% 100 ML IVPB SCH ×2 (07:58→15:56)
[2023-09-30] MEDS: POTASSIUM CHLORIDE ER 20 MEQ TAB.ER PO SCH (07:59)
[2023-09-30] MEDS: AZITHROMYCIN 500 MG TAB PO SCH (07:59)
[2023-09-30] MEDS: SUCRALFATE 1 GM TAB PO SCH ×2 (07:59→21:36)
[2023-09-30] MEDS: METOPROLOL TARTRATE 50 MG TAB PO SCH ×2 (08:00→21:36)
[2023-09-30] MEDS: NIFEdipine XL 30 MG TAB.ER.24 PO SCH (08:00)
[2023-09-30] MEDS: predniSONE 20 MG TAB PO SCH (08:00)
[2023-09-30] MEDS: FUROSEMIDE 20 MG TAB PO SCH (08:00)
[2023-09-30] MEDS: MULTIVITAMINS, THERA 1 EACH TAB PO SCH (08:00)
--- NOTE | 2023-09-30 09:19 | CT ---
EXAMINATION TYPE: CT chest w con CT DLP: 248.90 mGycm, Automated exposure control for dose reduction was used. DATE OF EXAM: 09/30/2023 8:32 AM COMPARISON: 09/28/2023. CLINICAL INDICATION:Female, 78 years old with history of pneumonia , abnormal Xray; PHH, RSV Pneumoni a, abnormal CXR TECHNIQUE: Multiple axial images were obtained through the chest. Sagittal and coronal reformats were created for review. Contrast used:100 mL of Isovue 300 with IV Contrast (None if empty) Oral contrast used: (None if empty) FINDINGS: LUNGS/ PLEURA: Trace bilateral pleural effusions left greater than right. There is associated atelect asis. There is calcifications along the pleura on the left including the left lung apex. No greater t james 4 mm in size pulmonary nodules identified. AIRWAY: Patent and unremarkable. HEART: Mildly enlarged for size. Moderate coronary artery atherosclerosis. MEDIASTINUM: No gross evidence of adenopathy. VASCULATURE: No aortic aneurysm. Right chest wall Ropeda-f-[id number] tip terminating in the superior vena cava. MUSCULOSKELETAL: No acute osseous abnormalities SOFT TISSUES/LYMPH NODES: Unremarkable. LOWER NECK: No significant findings. UPPER ABDOMEN: Postsurgical changes anterior upper abdominal wall. The gallbladder surgically absent. IMPRESSION: 1. No evidence for cavitating lesion to suggest active tuberculosis. 2. Cardiomegaly with trace bilateral pleural effusions correlate for congestive heart failure. Follow up recommendations for incidental pulmonary nodules, if there are any, are per [employer] or [employer]. [email or web address]
[2023-09-30] MEDS ORDERED: FUROSEMIDE 10 MG/ML 4 ML VIAL IV STA (11:45)
--- NOTE | 2023-09-30 11:55 | P.PN ---
Subjective This is a pleasant 78 years old female with multiple medical problems including history of autoimmune hemolytic anemia status post 6-7 times of blood transfusion over the last 3 years, hypertension, deep venous thrombosis on eliquis Patient state that she's been in the [facility]rehab for about 2 months because of difficulty walking, improvement as she can get up with health now and she can walk with a walker with little help as well. Both she still needs rehab as she states. She was sent from [facility] for abnormal chest x-ray suspicious for tuberculosis per report which is place and the system now. Patient currently lying in bed on room air, looks comfortable, not tachypnea at rest. She denies dyspnea but she states she has been coughing with clear phlegm for about 3 days About 3 days ago a Beauchamp catheter has placed for her in the rehab but she cannot tell 1. Currently she denies any dysuria urgency, no flank pain or suprapubic pain or tenderness. No headache dizziness weakness or numbness or blurred vision. Patient states that she has history of hemolytic anemia and she received about 67 blood transfusion over the last 2 years and her forestry faculty member is Dr. Martines. She denies smoking alcohol or illicit drugs. On admission she had a fever of 101.9. Blood pressure was low normal 102/52, heart rate 99, she is saturating 97% on room air. Echo psychosis 21,000, hemoglobin 6.6 came back down to 6.0. Potassium 2.8, total bilirubin 2.8, AST and ALT are within the reference range. C-reactive protein elevated 15.8 and 4calcitonin 6.7. Folate is 19. Urine analysis looks turbid sample Influenza A and type B, SARS (coronavirus) are and detected, RSV test came back positive Chest x-ray: Septal scattered opacity which may represent an atypical pneumonia versus chronic scarring per neurologist. She was started on Rocephin and Zithromax and emergency room with normal saline at 75 mL/h and she was continued on Eliquis a planned to get one of blood transfusion now 09/30/2023 Patient still complains from some tachypnea and coughing but no overt chest pain. She is complaining of from some diarrhea today No abdominal pain, no vomiting She is hemodynamically stable, blood pressure improved, she is currently on room air. No more fever. Labs from today are pending CT of the chest showing no pulmonary cavitary lesion to suspect active DVT but she has trace bilateral pleural effusion suspicious for fluid overload, also she has 4 mm lung nodule. Her pro-calcitonin is elevated 6.7 Her 20. On is pending, urobilinogen was pending, B12 is elevated 10:30, folate is acceptable at 19.4. Anemia studies showing anemia of chronic disease with low TIBC and high ferritin Her blood culture came back positive for resistant E. coli and her antibiotics were switched to meropenem. D5 normal saline was stopped in 1 domes of Lasix IV 4 mg given. 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 However workup for hemolytic anemia was unrevealing with normal haptoglobin and normal indirect bilirubin Review of systems CONSTITUTIONAL: No fever, no malaise, no fatigue. HEENT: No recent visual problems or hearing problems. Denied any sore throat. CARDIOVASCULAR: No orthopnea, PND, no palpitations, no syncope. PULMONARY: No chest wall tenderness, no hemoptysis. GASTROINTESTINAL: no nausea, no vomiting, no abdominal pain. Normoactive bowel sounds. NEUROLOGICAL: No headaches, no weakness, no numbness. Active Medications Generic Name Dose Route Start Last Admin Trade Name Freq PRN Reason Stop Dose Admin Acetaminophen 650 mg 09/28/23 21:52 Acetaminophen Tab 325 Mg Tab PO Q6HR PRN Mild Pain or Fever > 100.5 Hydrocodone Bitart/Acetaminophen 1 each 09/28/23 21:52 09/29/23 00:38 Hydrocodone/Apap 5-325mg 1 Each Tab PO 1 each Q4HR PRN Administration Moderate Pain (Scale 4 to 6) Furosemide 20 mg 09/29/23 09:00 09/30/23 08:00 Furosemide 20 Mg Tab PO 20 mg DAILY RIZWANA Administration Guaifenesin/Dextromethorphan 10 ml 09/29/23 12:40 09/29/23 22:10 Guaifenesin-Dm 100-10mg/5ml 10 Ml Cup PO 10 ml Q6HR PRN Administration Cough Meropenem 1 gm/ Sodium 100 mls @ 33.3 mls/hr 09/30/23 00:00 09/30/23 07:58 Chloride IVPB 33.3 mls/hr Q8HR RIZWANA Administration Protocol Melatonin 3 mg 09/28/23 21:52 Melatonin 3 Mg Tablet PO HS PRN Insomnia Metoprolol Tartrate 50 mg 09/29/23 09:00 09/30/23 08:00 Metoprolol Tartrate 50 Mg Tab PO 50 mg BID RIZWANA Administration Miscellaneous Information 1 each 09/28/23 21:55 Pneumonia Protocol Utilized 1 Each Misc PO ONCE PRN Per Protocol Miscellaneous Information 1 each 09/29/23 23:08 Rx Info: Iv Contrast Was Given 1 Each Misc MISCELLANE 10/01/23 23:08 DAILY PRN Per Protocol Multivitamins 1 each 09/29/23 09:00 09/30/23 08:00 Multivitamins, Thera 1 Each Tab PO 1 each DAILY RIZWANA Administration Naloxone HCl 0.2 mg 09/28/23 21:52 Naloxone 0.4 Mg/Ml 1 Ml Vial IV Q2M PRN Opioid Reversal Nifedipine 30 mg 09/29/23 09:00 09/30/23 08:00 Nifedipine Xl 30 Mg Tab.Er.24 PO 30 mg DAILY RIZWANA Administration Non-Formulary Medication 70 mg 09/29/23 05:00 09/29/23 06:23 Alendronate Sodium [Fosamax] PO Not Given SA@0500 RIZWANA Non-Formulary Medication 1 tab 09/29/23 09:00 09/29/23 19:06 Guaifenesin/Pseudoephedrne Hcl [Mucinex D Er 1,200-120 Mg Tab] PO 10/05/23 21:01 Not Given Q12H RIZWANA Ondansetron HCl 4 mg 09/28/23 21:52 Ondansetron 4 Mg/2 Ml Vial IVP Q8HR PRN Nausea And Vomiting Pantoprazole Sodium 40 mg 09/29/23 07:30 09/30/23 06:14 Pantoprazole 40 Mg Tablet PO 40 mg AC-BID RIZWANA Administration Potassium Chloride 20 meq 09/29/23 09:00 09/30/23 07:59 Potassium Chloride Er 20 Meq Tab.Er PO 10/05/23 09:01 20 meq DAILY RIZWANA Administration Prednisone 70 mg 09/29/23 19:45 09/30/23 08:00 Prednisone 20 Mg Tab PO 70 mg DAILY RIZWANA Administration Sucralfate 1 gm 09/29/23 09:00 09/30/23 07:59 Sucralfate 1 Gm Tab PO 1 gm BID RIZWANA Administration Tamsulosin HCl 0.4 mg 09/29/23 21:00 09/29/23 22:10 Tamsulosin 0.4 Mg Cap.Er.24h PO 0.4 mg HS RIZWANA Administration Objective - Vital Signs Vital signs: Vital Signs Temp 97.8 F 09/30/23 07:00 Pulse 108 H 09/30/23 07:00 Resp 19 09/30/23 07:00 BP 129/70 09/30/23 07:00 Pulse Ox 93 L 09/30/23 07:00 FiO2 Intake & Output 09/29/23 09/30/23 09/30/23 18:59 06:59 18:59 Intake Total 293 118 Output Total 650 Balance 293 -650 118 Intake: Oral 293 118 Output: Urine 650 Other: Voiding Method Indwelling Catheter Indwelling Catheter # Bowel Movements 1 - Exam GENERAL: The patient is alert and oriented x3, not in any acute distress. Well developed, well nourished. HEENT: Pupils are round and equally reacting to light. EOMI. No scleral icterus. No conjunctival pallor. Normocephalic, atraumatic. No pharyngeal erythema. No thyromegaly. CARDIOVASCULAR: S1 and S2 present. No murmurs, rubs, or gallops. -PULMONARY: Chest is clear to auscultation, no wheezing , no crackles. Bilateral harsh breath sound, mildly tachypneics ABDOMEN: Soft, nontender, nondistended, normoactive bowel sounds. No palpable organomegaly. MUSCULOSKELETAL: No joint swelling or deformity. EXTREMITIES: No cyanosis, clubbing, or pedal edema. NEUROLOGICAL: Gross neurological examination did not reveal any focal deficits. SKIN: No rashes. no petechiae. - Labs CBC & Chem 7: 09/29/23 06:25 09/29/23 06:25 Labs: Abnormal Lab Results - Last 24 Hours (Table) 09/29/23 09/29/23 09/29/23 Range/Units 00:03 06:25 06:25 WBC 21.6 H (3.8-10.6) k/uL Neutrophils # (Manual) 20.50 H (1.3-7.7) k/uL Lymphocytes # (Manual) 0.65 L (1.0-4.8) k/uL Nucleated RBCs 1 H (0-0) /100 WBC Retic Count (0.5-2.0) % Creatinine 0.5 L (0.6-1.5) mg/dL BUN/Creatinine Ratio 34.20 H (12.00-20.00) Ratio Glucose 152 H (70-110) mg/dL Calcium 8.0 L (8.7-10.3) mg/dL Iron 10 L (50-170) UG/DL TIBC 128 L (228-460) UG/DL % Saturation 7.81 L (12.00-45.00) Transferrin 91.2 L (204.0-354.0) mg/dL Ferritin 4322.0 H (10.0-291.0) ng/mL Total Bilirubin 1.6 H (0.3-1.2) mg/dL Conjugated Bilirubin 0.66 H (0.20-0.40) mg/dL Total Protein 4.6 L (6.2-8.2) g/dL Albumin 2.9 L (3.8-4.9) g/dL Vitamin B12 1031.0 H (200.0-944.0) pg/mL 09/29/23 Range/Units 06:25 WBC (3.8-10.6) k/uL Neutrophils # (Manual) (1.3-7.7) k/uL Lymphocytes # (Manual) (1.0-4.8) k/uL Nucleated RBCs (0-0) /100 WBC Retic Count 9.0 H (0.5-2.0) % Creatinine (0.6-1.5) mg/dL BUN/Creatinine Ratio (12.00-20.00) Ratio Glucose (70-110) mg/dL Calcium (8.7-10.3) mg/dL Iron (50-170) UG/DL TIBC (228-460) UG/DL % Saturation (12.00-45.00) Transferrin (204.0-354.0) mg/dL Ferritin (10.0-291.0) ng/mL Total Bilirubin (0.3-1.2) mg/dL Conjugated Bilirubin (0.20-0.40) mg/dL Total Protein (6.2-8.2) g/dL Albumin (3.8-4.9) g/dL Vitamin B12 (200.0-944.0) pg/mL Microbiology - Last 24 Hours (Table) 09/28/23 23:00 Blood Culture Gram Stain - Preliminary Blood 09/28/23 23:15 Blood Culture Gram Stain - Preliminary Blood Assessment and Plan Assessment: Sepsis with fever and leukocytosis Bacteremia with resistant E. coli Bilateral atypical pneumonia, versus healthcare associated pneumonia h/o deep venous thrombosis on eliquis Abnormal urine analysis most likely asymptomatic bacteriuria associated with Beauchamp catheter Possible recent history of urinary retention status post Beauchamp catheter about 3- 4 days prior to this hospitalization Plan: Continue with antibiotic, we'll going to consult infectious disease team for antibiotic management. Currently on meropenem Continue with normal saline 75 mL/h Anemia workup Given 2 units of blood transfusion and monitor hemoglobin. Electrolytes per protocol Hematology disease consult Continue with Beauchamp catheter Continue with the prednisone 70 mg per hematology team Resume a liquids was cleared by hematology team Labs and medication were reviewed.. Continue same treatment. Continue with symptomatic treatment. Resume home medication. Monitor labs and vitals. DVT and GI prophylaxis. Further recommendations as per clinical course of the patient DVT prophylaxis: SCD GI Prophylaxis: PPI Prognosis is guarded
[2023-09-30] MEDS ORDERED: guaiFENesin-Coden 100-10MG/5ML 10 ML CUP PO ONE (12:00)
[2023-09-30 14:39] LABS: Reticulocyte % 7.9 % (0.5-2.0)
[2023-09-30 14:42] LABS: Bilirubin,Unconjugated 0.8 mg/dL (0.0-1.1); Total Bilirubin 1.1 mg/dL (0.2-1.3)
[2023-09-30 19:33] LABS: Bilirubin, Conjugated 0.6 mg/dL (0.20-0.40); Total Bilirubin 1.6 mg/dL (0.3-1.2)
[2023-09-30] MEDS: guaiFENesin-DM 100-10MG/5ML 10 ML CUP PO PRN (21:36)
[2023-09-30] MEDS: TAMSULOSIN 0.4 MG CAP.ER.24H PO SCH (21:36)
[2023-10-01] MEDS: MEROPENEM 1 GM in SODIUM CHLORIDE 0.9% 100 ML IVPB SCH ×3 (01:01→17:53)
[2023-10-01] MEDS: PANTOPRAZOLE 40 MG TABLET PO SCH ×2 (06:34→16:50)
[2023-10-01 07:49] LABS: Anisocytosis Moderate; Hypochromasia Marked; MCH 31.6 pg (25.0-35.0); MCHC 32.2 g/dL (31.0-37.0); MCV 98.2 fL (80.0-100.0); Macrocytosis Moderate; Mean Platelet Volume 8.1; Platelet Count 442 k/uL (150-450); Poikilocytosis Marked; RBC 1.91 m/uL (3.80-5.40); RDW 21.6 % (11.5-15.5)
[2023-10-01 07:53] LABS: ALT 16 U/L (4-34); AST 17 U/L (14-36); African American GFR (CKD) >90 (>60 ml/min/1.73 sqM); Albumin 2.8 g/dL (3.5-5.0); Albumin/Globulin Ratio 1.2; Alkaline Phosphatase 114 U/L (38-126); Anion Gap 8 mmol/L; Blood Urea Nitrogen 9 mg/dL (7-17); Calcium 8.4 mg/dL (8.4-10.2); Carbon Dioxide 24 mmol/L (22-30); Chloride 107 mmol/L (98-107); Globulin 2.3 g/dL; Glucose 89 mg/dL (74-99); Non-African American GFR(CKD) >90 (>60 ml/min/1.73 sqM); Sodium 139 mmol/L (137-145); Total Bilirubin 1.3 mg/dL (0.2-1.3); Total Protein 5.1 g/dL (6.3-8.2)
[2023-10-01 07:57] LABS: HCT 18.7 % (34.0-46.0)
[2023-10-01] MEDS: POTASSIUM CHLORIDE ER 20 MEQ TAB.ER PO SCH ×3 (08:40→09:58)
[2023-10-01] MEDS: predniSONE 20 MG TAB PO SCH (08:40)
[2023-10-01] MEDS: METOPROLOL TARTRATE 50 MG TAB PO SCH ×2 (08:41→20:05)
[2023-10-01] MEDS: NIFEdipine XL 30 MG TAB.ER.24 PO SCH (08:41)
[2023-10-01] MEDS: MULTIVITAMINS, THERA 1 EACH TAB PO SCH (08:41)
[2023-10-01] MEDS: SUCRALFATE 1 GM TAB PO SCH ×2 (08:41→20:05)
[2023-10-01 09:04] LABS: Metamyelocytes % 2 %; Myelocytes % 1 %; Neutrophils % (M) 65 %; Nucleated Red Blood Cells 16 /100 WBC (0-0); Total Cells Counted 200
[2023-10-01 09:05] LABS: Lymphocytes # (M) 5.92 k/uL (1.0-4.8); Metamyelocytes # (M) 0.38 k/uL (0); Monocytes # (M) 0.57 k/uL (0-1.0); Myelocytes # (M) 0.19 k/uL (0); Neutrophils # (M) 12.42 k/uL (1.3-7.7); Polychromasia Present; WBC 19.1 k/uL (3.8-10.6)
[2023-10-01] MEDS: guaiFENesin-DM 100-10MG/5ML 10 ML CUP PO PRN (09:09)
[2023-10-01] MEDS ORDERED: Potassium Replacement Protocol 1 EACH MISC MISCELLANE PRN (09:33)
[2023-10-01] MEDS: FUROSEMIDE 20 MG TAB PO SCH (09:57)
[2023-10-01] MEDS ORDERED: IMMUNE GLOBULIN (GAMMAGARD) 5 GM in EMPTY BAG 1 BAG IV ONE (13:00)
[2023-10-01] MEDS ORDERED: IMMUNE GLOBULIN (GAMMAGARD) 30 GM in EMPTY BAG 1 BAG IV ONE (13:00)
--- NOTE | 2023-10-01 13:34 | P.PN ---
Subjective Progress Note Date: 10/01/23 Principal diagnosis: AIHA In f/u today pt is not reporting fevers, headaches, vision changes, nausea or vomiting, bleeding or unusual bruising. Report SOB with exertion, congested cough, no hemoptysis. Objective - Vital Signs Vital signs: Vital Signs Temp 98.2 F 10/01/23 11:21 Pulse 92 10/01/23 11:21 Resp 20 10/01/23 11:21 BP 146/74 10/01/23 11:21 Pulse Ox 92 L 10/01/23 11:21 FiO2 Intake & Output 09/30/23 10/01/23 10/01/23 18:59 06:59 18:59 Intake Total 236 358 Output Total 2350 550 100 Balance -2114 -550 258 Intake: Oral 236 358 Output: Urine 2350 550 100 Other: Voiding Method Indwelling Catheter Indwelling Catheter Indwelling Catheter - Constitutional General appearance: Present: average body habitus, cooperative, no acute distress - EENT Eyes: Present: anicteric sclerae, EOMI ENT: Present: hearing grossly normal, normal oropharynx - Respiratory Respiratory: bilateral: rhonchi (throughout) - Cardiovascular Rhythm: regular Heart sounds: normal: S1, S2 Abnormal Heart Sounds: Absent: systolic murmur, diastolic murmur, rub, S3 Gallop, S4 Gallop, click, other - Peripheral edema leg Peripheral Edema: bilateral: None - Gastrointestinal General gastrointestinal: Present: normal bowel sounds, soft - Neurologic Neurologic: Present: CNII-XII intact - Musculoskeletal Musculoskeletal: Present: strength equal bilaterally - Psychiatric Psychiatric: Present: A&O x's 3, appropriate affect, intact judgment & insight - Labs CBC & Chem 7: 10/01/23 07:27 10/01/23 07:27 Labs: Abnormal Lab Results - Last 24 Hours (Table) 09/29/23 09/29/23 09/30/23 Range/Units 02:00 06:25 14:08 WBC (3.8-10.6) k/uL RBC (3.80-5.40) m/uL Hgb (11.4-16.0) gm/dL Hct (34.0-46.0) % RDW (11.5-15.5) % Neutrophils # (Manual) (1.3-7.7) k/uL Lymphocytes # (Manual) (1.0-4.8) k/uL Metamyelocytes # (Man) (0) k/uL Myelocytes # (Manual) (0) k/uL Nucleated RBCs (0-0) /100 WBC Retic Count 7.9 H (0.5-2.0) % Potassium (3.5-5.1) mmol/L Creatinine (0.52-1.04) mg/dL Total Bilirubin 1.6 H (0.3-1.2) mg/dL Conjugated Bilirubin 0.60 H (0.20-0.40) mg/dL Lactate Dehydrogenase 366 H (120-246) U/L Total Protein (6.3-8.2) g/dL Albumin (3.5-5.0) g/dL Crossmatch See Detail 09/30/23 10/01/23 10/01/23 Range/Units 14:08 07:27 07:27 WBC 19.1 H (3.8-10.6) k/uL RBC 1.91 L (3.80-5.40) m/uL Hgb 6.0 L* (11.4-16.0) gm/dL Hct 18.7 L* (34.0-46.0) % RDW 21.6 H (11.5-15.5) % Neutrophils # (Manual) 12.42 H (1.3-7.7) k/uL Lymphocytes # (Manual) 5.92 H (1.0-4.8) k/uL Metamyelocytes # (Man) 0.38 H (0) k/uL Myelocytes # (Manual) 0.19 H (0) k/uL Nucleated RBCs 16 H (0-0) /100 WBC Retic Count (0.5-2.0) % Potassium 3.0 L (3.5-5.1) mmol/L Creatinine 0.49 L (0.52-1.04) mg/dL Total Bilirubin (0.3-1.2) mg/dL Conjugated Bilirubin (0.20-0.40) mg/dL Lactate Dehydrogenase 338 H (120-246) U/L Total Protein 5.1 L (6.3-8.2) g/dL Albumin 2.8 L (3.5-5.0) g/dL Crossmatch Microbiology - Last 24 Hours (Table) 09/29/23 06:37 Gram Stain - Final Sputum Sputum Culture - Final 09/28/23 23:15 Blood Culture Gram Stain - Final Blood Blood Culture - Final Escherichia coli 09/28/23 23:00 Blood Culture Gram Stain - Final Blood Blood Culture - Final Escherichia coli - Imaging and Cardiology CT scan - chest: report reviewed Assessment and Plan (1) Autoimmune hemolytic anemia Current Visit: Yes Status: Acute Code(s): D59.10 - AUTOIMMUNE HEMOLYTIC ANEMIA, UNSPECIFIED SNOMED Code(s): 312589207 (2) RSV (respiratory syncytial virus pneumonia) Current Visit: Yes Status: Acute Code(s): J12.1 - RESPIRATORY SYNCYTIAL VIRUS PNEUMONIA SNOMED Code(s): 325340903 (3) DVT (deep venous thrombosis) Current Visit: Yes Status: Chronic Priority: Medium Code(s): I82.409 - ACUTE EMBOLISM AND THOMBOS UNSP DEEP VN UNSP LOWER EXTREMITY SNOMED Code(s): 445059395 Plan: AIHA -Labs suggestive of the same -Exacerbated by acute RSV infection -Hgb 6 today-stable from admit, she has not had transfusion yet -Started on prednisone yesterday. Will send order to transfuse with least incompatible blood today -Change to high dose solumedrol for tomorrow's dose, x 3 days, then will return to oral pred dosing -IVIG ordered, discussed with Pharmacist, orders placed for divided dose Leukocytosis -2/2 steroids, will cont to monitor through daily CBCs RSV -ID following and treating DVT -Pending communication with patient's primary Rubber And Pounder to confirm when DVT occurred and anticipated duration of anticoagulation. We will update the chart once we have this information. Dr steelests: I have seen and examined patient, performed H&P, developed impression and plan of care. Discussed with dictator. Agree with documentation, dictated as a scribe.
[2023-10-01] MEDS ORDERED: ALBUTEROL NEBULIZED 2.5 MG/3 ML INHALATION PRN (22:19)
--- NOTE | 2023-10-01 22:20 | P.PN ---
Subjective Progress Note Date: 10/01/23 This is a pleasant 78 years old female with multiple medical problems including history of autoimmune hemolytic anemia status post 6-7 times of blood transfusion over the last 3 years, hypertension, deep venous thrombosis on eliquis Patient state that she's been in the snf/rehab for about 2 months because of difficulty walking, improvement as she can get up with health now and she can walk with a walker with little help as well. Both she still needs rehab as she states. She was sent from [facility] for abnormal chest x-ray suspicious for tuberculosis per report which is place and the system now. Patient currently lying in bed on room air, looks comfortable, not tachypnea at rest. She denies dyspnea but she states she has been coughing with clear phlegm for about 3 days About 3 days ago a Beauchamp catheter has placed for her in the rehab but she cannot tell 1. Currently she denies any dysuria urgency, no flank pain or suprapubic pain or tenderness. No headache dizziness weakness or numbness or blurred vision. Patient states that she has history of hemolytic anemia and she received about 67 blood transfusion over the last 2 years and her outside operator is Dr. Martines. She denies smoking alcohol or illicit drugs. On admission she had a fever of 101.9. Blood pressure was low normal 102/52, heart rate 99, she is saturating 97% on room air. Echo psychosis 21,000, hemoglobin 6.6 came back down to 6.0. Potassium 2.8, total bilirubin 2.8, AST and ALT are within the reference range. C-reactive protein elevated 15.8 and 4calcitonin 6.7. Folate is 19. Urine analysis looks turbid sample Influenza A and type B, SARS (coronavirus) are and detected, RSV test came back positive Chest x-ray: Septal scattered opacity which may represent an atypical pneumonia versus chronic scarring per neurologist. She was started on Rocephin and Zithromax and emergency room with normal saline at 75 mL/h and she was continued on Eliquis a planned to get one of blood transfusion now 09/30/2023 Patient still complains from some tachypnea and coughing but no overt chest pain. She is complaining of from some diarrhea today No abdominal pain, no vomiting She is hemodynamically stable, blood pressure improved, she is currently on room air. No more fever. Labs from today are pending CT of the chest showing no pulmonary cavitary lesion to suspect active DVT but she has trace bilateral pleural effusion suspicious for fluid overload, also she has 4 mm lung nodule. Her pro-calcitonin is elevated 6.7 Her 20. On is pending, urobilinogen was pending, B12 is elevated 10:30, folate is acceptable at 19.4. Anemia studies showing anemia of chronic disease with low TIBC and high ferritin Her blood culture came back positive for resistant E. coli and her antibiotics were switched to meropenem. D5 normal saline was stopped in 1 domes of Lasix IV 4 mg given. 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 However workup for hemolytic anemia was unrevealing with normal haptoglobin and normal indirect bilirubin 12.18.2022 Patient has been moved to the stepdown unit from observation. Currently on supportive care for acute RSV infection. Has scattered wheezing.She is also seeing hematology for hemolytic anemia; hgb of 6.0 today patient will receive 1 unit of PRBC additionally she has been transitioned from high dose oral prednisone to solumedrol infusion over 3 day course. She is receiving IV IG. On IV meropenem for E.Coli bacteremia. Review of systems CONSTITUTIONAL: No fever, no malaise, no fatigue. HEENT: No recent visual problems or hearing problems. Denied any sore throat. CARDIOVASCULAR: No orthopnea, PND, no palpitations, no syncope. PULMONARY: No chest wall tenderness, no hemoptysis. GASTROINTESTINAL: no nausea, no vomiting, no abdominal pain. Normoactive bowel sounds. NEUROLOGICAL: No headaches, no weakness, no numbness. PHYSICAL EXAMINATION: GENERAL: The patient is alert and oriented x3, not in any acute distress. Well developed, well nourished. HEENT: Pupils are round and equally reacting to light. EOMI. No scleral icterus. No conjunctival pallor. Normocephalic, atraumatic. No pharyngeal erythema. No thyromegaly. CARDIOVASCULAR: S1 and S2 present. No murmurs, rubs, or gallops. PULMONARY: Chest is clear to auscultation, no wheezing or crackles. ABDOMEN: Soft, nontender, nondistended, normoactive bowel sounds. No palpable organomegaly. MUSCULOSKELETAL: No joint swelling or deformity. EXTREMITIES: No cyanosis, clubbing, or pedal edema. NEUROLOGICAL: Gross neurological examination did not reveal any focal deficits. SKIN: No rashes. Assessment: Sepsis with fever and leukocytosis Acute RSV infection Bacteremia with resistant E. coli Bilateral atypical pneumonia, versus healthcare associated pneumonia h/o deep venous thrombosis on eliquis Abnormal urine analysis most likely asymptomatic bacteriuria associated with Beauchamp catheter Possible recent history of urinary retention status post Beauchamp catheter about 3- 4 days prior to this hospitalization Hemolytic anemia, autoimmune. Hypokalemia Plan: Continue with antibiotic Currently on meropenem, ID following and repeat blood culture are currently pending. Given 2 units of blood transfusion and monitor hemoglobin. She is currently pending blood. Hematology disease consult patient to receive IV infusion solumedrol and IV IG Continue with Beauchamp catheter Continue with the prednisone 70 mg per hematology team Resume eliquis when cleared by hematology team Add albuterol and inhaled steroids. Labs and medication were reviewed.. Continue same treatment. Continue with sym ptomatic treatment. Resume home medication. Monitor labs and vitals. DVT and GI prophylaxis. Further recommendations as per clinical course of the patient DVT prophylaxis: SCD GI Prophylaxis: PPI Full Code The impression and plan of care has been dictated by Tammei Mejia, Nurse Practitioner as directed. Dr. Jarad MD I have performed a history and physical examination and medical decision making of this patient, discussed the same with the dictator, and agree with the dictators assessment and plan as written, documented as a scribe. Based on total visit time, I have performed more than 50% of this visit. Objective - Vital Signs Vital signs: Vital Signs Temp 98.2 F 10/01/23 11:21 Pulse 92 10/01/23 11:21 Resp 20 10/01/23 11:21 BP 146/74 10/01/23 11:21 Pulse Ox 92 L 10/01/23 11:21 FiO2 Intake & Output 09/30/23 10/01/23 10/01/23 18:59 06:59 18:59 Intake Total 236 419.25 Output Total 2350 550 100 Balance -2114 -550 319.25 Intake: Intake, IV Titration 61.25 Amount Immune Globulin ( 61.25 Gammagard) 30 gm In Empty Bag 1 bag @ Per Protocol IV .Q0M ONE Rx#: [id number] Oral 236 358 Output: Urine 2350 550 100 Other: Voiding Method Indwelling Catheter Indwelling Catheter Indwelling Catheter - Labs CBC & Chem 7: 10/01/23 07:27 10/01/23 07:27 Labs: Abnormal Lab Results - Last 24 Hours (Table) 09/29/23 09/29/23 09/30/23 Range/Units 02:00 06:25 14:08 WBC (3.8-10.6) k/uL RBC (3.80-5.40) m/uL Hgb (11.4-16.0) gm/dL Hct (34.0-46.0) % RDW (11.5-15.5) % Neutrophils # (Manual) (1.3-7.7) k/uL Lymphocytes # (Manual) (1.0-4.8) k/uL Metamyelocytes # (Man) (0) k/uL Myelocytes # (Manual) (0) k/uL Nucleated RBCs (0-0) /100 WBC Retic Count 7.9 H (0.5-2.0) % Potassium (3.5-5.1) mmol/L Creatinine (0.52-1.04) mg/dL Total Bilirubin 1.6 H (0.3-1.2) mg/dL Conjugated Bilirubin 0.60 H (0.20-0.40) mg/dL Lactate Dehydrogenase 366 H (120-246) U/L Total Protein (6.3-8.2) g/dL Albumin (3.5-5.0) g/dL Crossmatch See Detail Blood Bank Comment Sent to [facility] A Reference Lab Result See [facility] REF Reports A 09/30/23 10/01/23 10/01/23 Range/Units 14:08 07:27 07:27 WBC 19.1 H (3.8-10.6) k/uL RBC 1.91 L (3.80-5.40) m/uL Hgb 6.0 L* (11.4-16.0) gm/dL Hct 18.7 L* (34.0-46.0) % RDW 21.6 H (11.5-15.5) % Neutrophils # (Manual) 12.42 H (1.3-7.7) k/uL Lymphocytes # (Manual) 5.92 H (1.0-4.8) k/uL Metamyelocytes # (Man) 0.38 H (0) k/uL Myelocytes # (Manual) 0.19 H (0) k/uL Nucleated RBCs 16 H (0-0) /100 WBC Retic Count (0.5-2.0) % Potassium 3.0 L (3.5-5.1) mmol/L Creatinine 0.49 L (0.52-1.04) mg/dL Total Bilirubin (0.3-1.2) mg/dL Conjugated Bilirubin (0.20-0.40) mg/dL Lactate Dehydrogenase 338 H (120-246) U/L Total Protein 5.1 L (6.3-8.2) g/dL Albumin 2.8 L (3.5-5.0) g/dL Crossmatch Blood Bank Comment Reference Lab Result Microbiology - Last 24 Hours (Table) 09/29/23 06:37 Gram Stain - Final Sputum Sputum Culture - Final 09/28/23 23:15 Blood Culture Gram Stain - Final Blood Blood Culture - Final Escherichia coli 09/28/23 23:00 Blood Culture Gram Stain - Final Blood Blood Culture - Final Escherichia coli Assessment and Plan Time with Patient: Less than 30
[2023-10-02] MEDS: MEROPENEM 1 GM in SODIUM CHLORIDE 0.9% 100 ML IVPB SCH ×4 (00:16→23:38)
[2023-10-02] MEDS: PANTOPRAZOLE 40 MG TABLET PO SCH ×2 (06:05→16:37)
[2023-10-02 06:59] LABS: Anisocytosis Moderate; HCT 24.7 % (34.0-46.0); Hypochromasia Moderate; MCH 32.1 pg (25.0-35.0); MCHC 33.3 g/dL (31.0-37.0); MCV 96.3 fL (80.0-100.0); Macrocytosis Slight; Mean Platelet Volume 8.4; Platelet Count 344 k/uL (150-450); Poikilocytosis Marked; RBC 2.57 m/uL (3.80-5.40); RDW 21.6 % (11.5-15.5); WBC 26.1 k/uL (3.8-10.6)
[2023-10-02 07:07] LABS: HGB 8.2 gm/dL (11.4-16.0)
[2023-10-02] MEDS: NIFEdipine XL 30 MG TAB.ER.24 PO SCH (07:39)
[2023-10-02] MEDS: METOPROLOL TARTRATE 50 MG TAB PO SCH ×3 (07:39→20:00)
[2023-10-02] MEDS: POTASSIUM CHLORIDE ER 20 MEQ TAB.ER PO SCH (07:39)
[2023-10-02] MEDS: SUCRALFATE 1 GM TAB PO SCH ×2 (07:39→19:55)
[2023-10-02] MEDS: FUROSEMIDE 20 MG TAB PO SCH (07:39)
[2023-10-02] MEDS: MULTIVITAMINS, THERA 1 EACH TAB PO SCH (07:39)
[2023-10-02 08:20] LABS: African American GFR (CKD) >90 (>60 ml/min/1.73 sqM); Anion Gap 9 mmol/L; Blood Urea Nitrogen 10 mg/dL (7-17); Calcium 8.6 mg/dL (8.4-10.2); Carbon Dioxide 26 mmol/L (22-30); Chloride 106 mmol/L (98-107); Glucose 81 mg/dL (74-99); Magnesium 1.5 mg/dL (1.6-2.3); Non-African American GFR(CKD) >90 (>60 ml/min/1.73 sqM); Potassium 3.5 mmol/L (3.5-5.1); Sodium 141 mmol/L (137-145)
[2023-10-02] MEDS ORDERED: Magnesium Replacement Protocol 1 EACH MISC MISCELLANE PRN (08:59)
[2023-10-02] MEDS ORDERED: methylPREDNISolone SOD SUCCIN 1,000 MG in SODIUM CHLORIDE 0.9% 250 ML IVPB SCH (09:00)
[2023-10-02] MEDS: BUDESONIDE 0.5 MG/2 ML NEBU INHALATION SCH ×2 (09:13→20:34)
[2023-10-02] MEDS: MAGNESIUM SULFATE-D5W PMX 1 GM in DEXTROSE/WATER 1 100ML.BAG IVPB SCH ×2 (09:14→10:13)
[2023-10-02] MEDS: ALBUTEROL NEBULIZED 2.5 MG/3 ML INHALATION SCH ×4 (09:14→20:34)
--- NOTE | 2023-10-02 11:18 | P.PN ---
Subjective Progress Note Date: 10/02/23 Principal diagnosis: AIHA In f/u today pt reports that she is breathing better, SOB is less intense, cough is still harsh, denies fevers, nausea or vomiting, bleeding. Objective - Vital Signs Vital signs: Vital Signs Temp 98.2 F 10/02/23 07:34 Pulse 92 10/02/23 09:25 Resp 18 10/02/23 07:34 BP 131/71 10/02/23 07:34 Pulse Ox 87 L 10/02/23 09:18 FiO2 Intake & Output 10/01/23 10/02/23 10/02/23 18:59 06:59 18:59 Intake Total 1843.75 Output Total 900 880 Balance 943.75 -880 Weight 70 kg Intake: Intake, IV Titration 155.75 Amount Immune Globulin ( 140.00 Gammagard) 30 gm In Empty Bag 1 bag @ Per Protocol IV .Q0M ONE Rx#: [id number] Immune Globulin ( 15.75 Gammagard) 5 gm In Empty Bag 1 bag @ Titrate IV . Q0M ONE Rx#:[id number] Oral 1378 Blood Product 310 Rc As-1 Unit 310 [id number] Output: Urine 900 880 Other: Voiding Method Indwelling Catheter Indwelling Catheter Indwelling Catheter # Bowel Movements 1 - Constitutional General appearance: Present: average body habitus, cooperative, no acute distress - EENT Eyes: Present: anicteric sclerae, EOMI ENT: Present: hearing grossly normal - Respiratory Respiratory: bilateral: rhonchi (improved from yesterday) - Cardiovascular Rhythm: regular - Peripheral edema leg Peripheral Edema: bilateral: None - Integumentary Integumentary: Present: normal - Neurologic Neurologic: Present: CNII-XII intact - Musculoskeletal Musculoskeletal: Present: strength equal bilaterally - Psychiatric Psychiatric: Present: A&O x's 3, appropriate affect, intact judgment & insight - Labs CBC & Chem 7: 10/02/23 06:15 10/02/23 06:15 Labs: Abnormal Lab Results - Last 24 Hours (Table) 09/29/23 10/02/23 10/02/23 Range/Units 02:00 06:15 06:15 WBC 26.1 H (3.8-10.6) k/uL RBC 2.57 L (3.80-5.40) m/uL Hgb 8.2 L D (11.4-16.0) gm/dL Hct 24.7 L (34.0-46.0) % RDW 21.6 H (11.5-15.5) % Creatinine 0.50 L (0.52-1.04) mg/dL Magnesium 1.5 L (1.6-2.3) mg/dL Crossmatch See Detail Blood Bank Comment Sent to [facility] A Reference Lab Result See BBK REF Reports A Microbiology - Last 24 Hours (Table) 09/30/23 07:57 Blood Culture - Preliminary Blood 09/29/23 06:37 Gram Stain - Final Sputum Sputum Culture - Final 09/28/23 23:15 Blood Culture Gram Stain - Final Blood Blood Culture - Final Escherichia coli 09/28/23 23:00 Blood Culture Gram Stain - Final Blood Blood Culture - Final Escherichia coli Assessment and Plan (1) Autoimmune hemolytic anemia Current Visit: Yes Status: Acute Code(s): D59.10 - AUTOIMMUNE HEMOLYTIC ANEMIA, UNSPECIFIED SNOMED Code(s): 585533643 (2) RSV (respiratory syncytial virus pneumonia) Current Visit: Yes Status: Acute Code(s): J12.1 - RESPIRATORY SYNCYTIAL VIRUS PNEUMONIA SNOMED Code(s): 798617919 (3) Pulmonary embolism Current Visit: Yes Status: Acute Priority: High Code(s): I26.99 - OTHER PULMONARY EMBOLISM WITHOUT ACUTE COR PULMONALE SNOMED Code(s): 68616374 Plan: AIHA -Labs suggestive of the same -Exacerbated by acute RSV infection -Hgb 8.2 today s/p 1 unit PRBCs least incompatible blood for Hgb 6. -Started on prednisone 09/30, changed to solumedrol 10/01, solumedrol dose divided and reduced today. Will return to oral pred dosing after 3 days of IV steroids -IVIG ordered for divided dose, she will receive 2 infusions Leukocytosis -2/2 steroids and infection, will cont to monitor through daily CBCs RSV -ID following, pt improving Pulmonary embolism -From 1 note received it sound as though pt had PE possibly in Jul/Aug (note states on 09/06 "pt ok to continue eliquis with recent pulmonary embolism") -Would recommend resuming eliquis as soon as felt ok to do so. Pt drop in Hgb most consistent with hemolysis vs bleeding. Not sure if any procedures are planned so will defer resuming eliquis to IM
[2023-10-02] MEDS: guaiFENesin-DM 100-10MG/5ML 10 ML CUP PO PRN (13:00)
[2023-10-02] MEDS ORDERED: IMMUNE GLOBULIN (GAMMAGARD) 30 GM in EMPTY BAG 1 BAG IV ONE (13:00)
[2023-10-02] MEDS ORDERED: IMMUNE GLOBULIN (GAMMAGARD) 5 GM in EMPTY BAG 1 BAG IV ONE (13:00)
[2023-10-02] MEDS: TAMSULOSIN 0.4 MG CAP.ER.24H PO SCH (19:55)
--- NOTE | 2023-10-02 23:05 | P.PN ---
Subjective Progress Note Date: 10/02/23 This is a pleasant 78 years old female with multiple medical problems including history of autoimmune hemolytic anemia status post 6-7 times of blood transfusion over the last 3 years, hypertension, deep venous thrombosis on eliquis Patient state that she's been in the correction/rehab for about 2 months because of difficulty walking, improvement as she can get up with health now and she can walk with a walker with little help as well. Both she still needs rehab as she states. She was sent from [facility] for abnormal chest x-ray suspicious for tuberculosis per report which is place and the system now. Patient currently lying in bed on room air, looks comfortable, not tachypnea at rest. She denies dyspnea but she states she has been coughing with clear phlegm for about 3 days About 3 days ago a Vargas catheter has placed for her in the rehab but she cannot tell 1. Currently she denies any dysuria urgency, no flank pain or suprapubic pain or tenderness. No headache dizziness weakness or numbness or blurred vision. 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 Martines. She denies smoking alcohol or illicit drugs. On admission she had a fever of 101.9. Blood pressure was low normal 102/52, heart rate 99, she is saturating 97% on room air. Echo psychosis 21,000, hemoglobin 6.6 came back down to 6.0. Potassium 2.8, total bilirubin 2.8, AST and ALT are within the reference range. C-reactive protein elevated 15.8 and 4calcitonin 6.7. Folate is 19. Urine analysis looks turbid sample Influenza A and type B, SARS (coronavirus) are and detected, RSV test came back positive Chest x-ray: Septal scattered opacity which may represent an atypical pneumonia versus chronic scarring per neurologist. She was started on Rocephin and Zithromax and emergency room with normal saline at 75 mL/h and she was continued on Eliquis a planned to get one of blood transfusion now 09/30/2023 Patient still complains from some tachypnea and coughing but no overt chest pain. She is complaining of from some diarrhea today No abdominal pain, no vomiting She is hemodynamically stable, blood pressure improved, she is currently on room air. No more fever. Labs from today are pending CT of the chest showing no pulmonary cavitary lesion to suspect active DVT but she has trace bilateral pleural effusion suspicious for fluid overload, also she has 4 mm lung nodule. Her pro-calcitonin is elevated 6.7 Her 20. On is pending, urobilinogen was pending, B12 is elevated 10:30, folate is acceptable at 19.4. Anemia studies showing anemia of chronic disease with low TIBC and high ferritin Her blood culture came back positive for resistant E. coli and her antibiotics were switched to meropenem. D5 normal saline was stopped in 1 domes of Lasix IV 4 mg given. She is also on Eliquis 5 mg [employer] Helper/oncologist in a started prednisone 70 mg daily for aortic possible autoimmune hemolytic anemia. However workup for hemolytic anemia was unrevealing with normal haptoglobin and normal indirect bilirubin ..2022 Patient has been moved to the stepdown unit from observation. Currently on supportive care for acute RSV infection. Has scattered wheezing.She is also seeing hematology for hemolytic anemia; hgb of 6.0 today patient will receive 1 unit of PRBC additionally she has been transitioned from high dose oral prednisone to solumedrol infusion over 3 day course. She is receiving IV IG. On IV meropenem for E.Coli bacteremia. 10/02/2023 Patient is evaluated today on the stepdown floor sitting up in the chair. Reports shortness of breath has improved. Does continue on 2 L of oxygen via nasal cannula. She has less wheezing today. Hemoglobin 8.2 after receiving 1 unit of blood. She is on course of IVIG and IV steroid infusion. She has also been placed on an inhaler steroid. Review of systems CONSTITUTIONAL: No fever, no malaise, no fatigue. HEENT: No recent visual problems or hearing problems. Denied any sore throat. CARDIOVASCULAR: No orthopnea, PND, no palpitations, no syncope. PULMONARY: No chest wall tenderness, no hemoptysis. GASTROINTESTINAL: no nausea, no vomiting, no abdominal pain. Normoactive bowel sounds. NEUROLOGICAL: No headaches, no weakness, no numbness. PHYSICAL EXAMINATION: GENERAL: The patient is alert and oriented x3, not in any acute distress. Well developed, well nourished. HEENT: Pupils are round and equally reacting to light. EOMI. No scleral icterus. No conjunctival pallor. Normocephalic, atraumatic. No pharyngeal erythema. No thyromegaly. CARDIOVASCULAR: S1 and S2 present. No murmurs, rubs, or gallops. PULMONARY: Chest is clear to auscultation, no wheezing or crackles. ABDOMEN: Soft, nontender, nondistended, normoactive bowel sounds. No palpable organomegaly. MUSCULOSKELETAL: No joint swelling or deformity. EXTREMITIES: No cyanosis, clubbing, or pedal edema. NEUROLOGICAL: Gross neurological examination did not reveal any focal deficits. SKIN: No rashes. Assessment: Sepsis with fever and leukocytosis Acute RSV infection Bacteremia with resistant E. coli Bilateral atypical pneumonia, versus healthcare associated pneumonia h/o deep venous thrombosis on eliquis Abnormal urine analysis most likely asymptomatic bacteriuria associated with Vargas catheter, patient has chronic vargas. Possible recent history of urinary retention status post Vargas catheter about 3- 4 days prior to this hospitalization Hemolytic anemia, autoimmune. Hypokalemia Hypomagnesemia Plan: Continue with antibiotic Currently on meropenem, ID following and repeat blood culture are currently pending. Given 2 units of blood transfusion and monitor hemoglobin. She is currently pending blood. Hematology disease consult patient to receive IV infusion solumedrol and IV IG Continue with Vargas catheter Patient to continue with IV steroid infusion and IVIG per hematology. Resume eliquis when cleared by hematology team Add albuterol and inhaled steroids. Replace electrolytes and follow up labs. Labs and medication were reviewed.. Continue same treatment. Continue with symptomatic treatment. Resume home medication. Monitor labs and vitals. DVT and GI prophylaxis. Further recommendations as per clinical course of the patient DVT prophylaxis: SCD GI Prophylaxis: PPI Full Code The impression and plan of care has been dictated by Tammie Mejia Nurse Practitioner as directed. Dr. Jarad MD I have performed a history and physical examination and medical decision making of this patient, discussed the same with the dictator, and agree with the dictators assessment and plan as written, documented as a scribe. Based on total visit time, I have performed more than 50% of this visit. Objective - Vital Signs Vital signs: Vital Signs Temp 98.1 F 10/02/23 20:00 Pulse 92 10/02/23 20:51 Resp 18 10/02/23 20:00 BP 119/78 10/02/23 20:00 Pulse Ox 99 10/02/23 20:00 FiO2 Intake & Output 10/02/23 10/02/23 10/03/23 06:59 18:59 06:59 Intake Total 364.834 Output Total 880 1700 Balance -880 -1335.166 Weight 70 kg Intake: Intake, IV Titration 124.834 Amount Immune Globulin ( 107.917 Gammagard) 30 gm In Empty Bag 1 bag @ Per Protocol IV .Q0M ONE Rx#: [id number] Immune Globulin ( 16.917 Gammagard) 5 gm In Empty Bag 1 bag @ Titrate IV . Q0M ONE Rx#:[id number] Oral 240 Output: Urine 880 1700 Other: Voiding Method Indwelling Catheter Indwelling Catheter Indwelling Catheter # Bowel Movements 1 - Labs CBC & Chem 7: 10/02/23 06:15 10/02/23 06:15 Labs: Abnormal Lab Results - Last 24 Hours (Table) 09/29/23 10/02/23 10/02/23 Range/Units 02:00 06:15 06:15 WBC 26.1 H (3.8-10.6) k/uL RBC 2.57 L (3.80-5.40) m/uL Hgb 8.2 L D (11.4-16.0) gm/dL Hct 24.7 L (34.0-46.0) % RDW 21.6 H (11.5-15.5) % Creatinine 0.50 L (0.52-1.04) mg/dL Magnesium 1.5 L (1.6-2.3) mg/dL Crossmatch See Detail Microbiology - Last 24 Hours (Table) 09/30/23 07:57 Blood Culture - Preliminary Blood 09/29/23 06:37 Legionella Culture - Preliminary Sputum Assessment and Plan Time with Patient: Less than 30
[2023-10-02] MEDS: methylPREDNISolone SOD SUCCI 125 MG/2 ML VIAL IV SCH (23:38)
[2023-10-03] MEDS: PANTOPRAZOLE 40 MG TABLET PO SCH ×2 (06:22→16:12)
[2023-10-03] MEDS: MAGNESIUM OXIDE 400 MG TAB PO SCH ×2 (08:39→21:01)
[2023-10-03] MEDS: methylPREDNISolone SOD SUCCI 125 MG/2 ML VIAL IV SCH ×2 (08:39→16:12)
[2023-10-03] MEDS: SUCRALFATE 1 GM TAB PO SCH ×2 (08:39→21:01)
[2023-10-03] MEDS: METOPROLOL TARTRATE 50 MG TAB PO SCH ×2 (08:39→21:02)
[2023-10-03] MEDS: POTASSIUM CHLORIDE ER 20 MEQ TAB.ER PO SCH (08:39)
[2023-10-03] MEDS: MULTIVITAMINS, THERA 1 EACH TAB PO SCH (08:39)
[2023-10-03] MEDS: FUROSEMIDE 20 MG TAB PO SCH (08:39)
[2023-10-03] MEDS: NIFEdipine XL 30 MG TAB.ER.24 PO SCH (08:39)
[2023-10-03] MEDS: BUDESONIDE 0.5 MG/2 ML NEBU INHALATION SCH ×2 (08:57→19:54)
[2023-10-03] MEDS: ALBUTEROL NEBULIZED 2.5 MG/3 ML INHALATION SCH ×4 (08:57→19:54)
[2023-10-03 09:34] LABS: Anisocytosis Marked; HCT 24.3 % (34.0-46.0); HGB 7.8 gm/dL (11.4-16.0); Hypochromasia Marked; MCHC 32.2 g/dL (31.0-37.0); MCV 99.3 fL (80.0-100.0); Macrocytosis Moderate; Mean Platelet Volume 8.7; Platelet Count 279 k/uL (150-450); Poikilocytosis Marked; RBC 2.45 m/uL (3.80-5.40); RDW 24.6 % (11.5-15.5)
[2023-10-03 09:36] LABS: African American GFR (CKD) >90 (>60 ml/min/1.73 sqM); Anion Gap 9 mmol/L; Blood Urea Nitrogen 12 mg/dL (7-17); Calcium 8.5 mg/dL (8.4-10.2); Carbon Dioxide 26 mmol/L (22-30); Chloride 105 mmol/L (98-107); Glucose 158 mg/dL (74-99); Magnesium 1.9 mg/dL (1.6-2.3); Non-African American GFR(CKD) >90 (>60 ml/min/1.73 sqM); Potassium 3.5 mmol/L (3.5-5.1); Sodium 140 mmol/L (137-145)
[2023-10-03 10:11] LABS: Band Neutrophils % 1 %; Lymphocytes # (M) 0.39 k/uL (1.0-4.8); Metamyelocytes # (M) 0.16 k/uL (0); Metamyelocytes % 2 %; Monocytes # (M) 0.23 k/uL (0-1.0); Neutrophils % (M) 90 %; Nucleated Red Blood Cells 47 /100 WBC (0-0); Total Cells Counted 200; WBC 7.8 k/uL (3.8-10.6)
[2023-10-03 10:16] LABS: Polychromasia Present
[2023-10-03 10:31] LABS: Spherocytes Present
[2023-10-03] MEDS: MEROPENEM 1 GM in SODIUM CHLORIDE 0.9% 100 ML IVPB SCH ×2 (11:34→16:12)
--- NOTE | 2023-10-03 13:49 | P.CONS ---
History of Present Illness - Reason for Consult Consult date: 10/03/23 Anemia, cannot rule out GI bleed Requesting physician: Dion E Sheet - Chief Complaint shortness of breath and cough - History of Present Illness This a pleasant 70-year-old female autoimmune hemolytic anemia, deep vein thrombosis, and hypertension who was at [facility] for rehab and sent here for concerns for cough and shortness of breath. Patient was admitted on 09/28/2023. Apparently while she was at [facility] she had a chest x-ray that was abnormal and was sent in for further evaluation. She was recently admitted over [facility] in [place] for anemia and required a transfusion about a month ago. She was found to be anemic again during this hospitalization. Hematology was consulted and report that labs are suggestive of autoimmune hemolytic anemia exacerbated by acute RSV infection. Patient did come in with a hemoglobin of 6.6 and was given 1 unit of blood transfusion with improvement to 8.2 with a repeat today of 7.8. She denies any black stool or blood in her stool, no abdominal pain, nausea or vomiting. No history of peptic ulcer disease. She reports that she had a colonoscopy about 2 years ago which was normal that was done in [place] by Dr. Royal and she had an EGD 4-5 years ago as part of her anemia workup again which was normal. She follows with Dr. Garber of [place] for her autoimmune hemolytic anemia. Patient also on Eliquis or recent blood clot in her arm and history of pulmonary embolism. Currently it is on hold. She has had 2 stool for occult blood tests that have been negative both on 10/01/2023 and 10/03/2023. Patient did test positive for RSV. She was started on prednisone and then changed to Solu-Medrol as well as IVIG per hematology. Review of Systems REVIEW OF SYSTEMS: CARDIOPULMONARY: No chest pain, some shortness of breath and cough. No hemotypsis. Gastrointestinal: No abdominal pain. No nausea or vomiting. No hematemesis, coffee-ground emesis. No rectal bleeding, or melena. GENITOURINARY: No dysuria or hematuria. MUSCULOSKELETAL: Reports normal range of motion., Joint pain. SKIN: No rashes. No jaundice. ENDOCRINE: No chills, fevers. No excessive weight gain or loss. No polydipsia or polyuria. PSYCHIATRIC: Unremarkable. NEUROLOGY: No change in mental status. Denies dizziness, headache. ENT: Vision unremarkable. CONSTITUTIONAL: No recent weight loss. No fever, chills, night sweats. Past Medical History Past Medical History: Deep Vein Thrombosis (DVT), Hypertension Additional Past Medical History / Comment(s): hemolytic anemia History of Any Multi-Drug Resistant Organisms: ESBL Year Discovered:: 09/28/23 MDRO Source:: Blood Past Surgical History: Cholecystectomy Past Alcohol Use History: None Reported Past Drug Use History: None Reported Medications and Allergies Home Medications Medication Instructions Recorded Confirmed Type Acetaminophen Tab [Tylenol Tab] 500 mg PO Q8H PRN 09/28/23 09/28/23 History Alendronate Sodium [Fosamax] 70 mg PO SA@0500 09/28/23 09/28/23 History Apixaban [Eliquis] 5 mg PO BID 09/28/23 09/28/23 History Furosemide [Lasix] 20 mg PO DAILY 09/28/23 09/28/23 History Guaifenesin/Pseudoephedrne HCl 1 tab PO DIRECTED 09/28/23 09/28/23 History [Mucinex D ER 1,200-120 mg Tab] Metoprolol Tartrate [Lopressor] 50 mg PO BID@0700,1900 09/28/23 09/28/23 History Multivitamins, Thera [Multivitamin 1 tab PO DAILY 09/28/23 09/28/23 History (formulary)] NIFEdipine XL [Procardia Xl] 30 mg PO DAILY 09/28/23 09/28/23 History Pantoprazole [Protonix] 40 mg PO BID 09/28/23 09/28/23 History Potassium Chloride ER [K-Dur 20] 20 meq PO DIRECTED 09/28/23 09/28/23 History Sucralfate [Carafate] 1 gm PO BID@0700,1600 09/28/23 09/28/23 History Tamsulosin [Flomax] 0.4 mg PO HS 09/28/23 09/28/23 History Allergies Allergy/AdvReac Type Severity Reaction Status Date / Time No Known Allergies Allergy Verified 09/28/23 20:28 Physical Exam Vitals: Vital Signs Temp Pulse Pulse Resp BP BP Pulse Ox 10/03/23 09:10 92 18 10/03/23 08:57 90 18 10/03/23 08:00 98.4 F 66 18 133/68 97 10/03/23 04:00 97.9 F 91 18 122/67 96 10/03/23 00:00 98.0 F 87 18 111/65 98 10/02/23 20:51 92 10/02/23 20:36 90 10/02/23 20:00 98.1 F 99 18 119/78 99 10/02/23 15:54 94 10/02/23 15:46 94 10/02/23 14:59 98.2 F 104 H 18 115/68 99 10/02/23 13:04 87 10/02/23 12:54 87 Intake and Output 10/02/23 10/03/23 10/03/23 22:59 06:59 14:59 Output Total 400 600 Balance -400 -600 Output: Urine 400 600 Other: Voiding Method Indwelling Catheter Indwelling Catheter Indwelling Catheter # Bowel Movements 1 Weight 69.5 kg General appearance: The patient is alert, oriented, appears in no acute distress. HET: Head is normocephalic and atraumatic. Conjunctiva pink. Sclera anicteric. Neck: Supple without lymphadenopathy. Trachea midline. Heart: Regular. Lungs: Equal expansion, normal respiratory effort. Abdomen: Soft, nontender, nondistended with bowel sounds. No guarding or rig idity. Skin: No rashes. No jaundice. Extremities: Normal skin color and turgor. No pedal edema. Neurological: No focal deficits. Alert and oriented x3. Results CBC & Chem 7: 10/03/23 08:35 10/03/23 08:35 Labs: Abnormal Lab Results - Last 24 Hours (Table) 10/03/23 10/03/23 Range/Units 08:35 08:35 RBC 2.45 L (3.80-5.40) m/uL Hgb 7.8 L (11.4-16.0) gm/dL Hct 24.3 L (34.0-46.0) % RDW 24.6 H (11.5-15.5) % Lymphocytes # (Manual) 0.39 L (1.0-4.8) k/uL Metamyelocytes # (Man) 0.16 H (0) k/uL Nucleated RBCs 47 H (0-0) /100 WBC Glucose 158 H (74-99) mg/dL Microbiology - Last 24 Hours (Table) 09/30/23 07:57 Blood Culture - Preliminary Blood 09/29/23 06:37 Legionella Culture - Preliminary Sputum Comments: Chest CT with contrast reports no evidence for cavitating lesion to suggest acute tuberculosis. Cardiomegaly with trace bilateral pleural effusions correlate for congestive heart failure Assessment and Plan (1) Autoimmune hemolytic anemia Narrative/Plan: 78-year-old female diagnosed in 2009 with autoimmune hemolytic anemia who is presenting with a normocytic anemia as low as 6.0 requiring 1 unit of blood transfusion with improvement to 8.2. Iron studies show iron at 10 however ferritin 4322. She has no signs of symptoms of a GI bleed. She's had 2 local stool tests that were negative during this admission. Denies any abdominal pain , nausea or vomiting. No history of GI bleed. Last colonoscopy approximately 2 years ago done at [place] and EGD 4-5 years ago all part of anemia workup that were normal. She is however on Eliquis which has been on hold since this admission for history of recent blood clot and patient's arm and prior pulmonary embolism. This patient was discussed with the hematology and they do believe anemia is all related to patient's immune hemolytic anemia and no evidence to suggest GI bleed. No plans on endoscopic evaluation at this time. May resume Eliquis. Current Visit: Yes Status: Acute Code(s): D59.10 - AUTOIMMUNE HEMOLYTIC ANEMIA, UNSPECIFIED SNOMED Code(s): 851806230 (2) RSV (respiratory syncytial virus pneumonia) Current Visit: Yes Status: Acute Code(s): J12.1 - RESPIRATORY SYNCYTIAL V IRUS PNEUMONIA SNOMED Code(s): 582135359 Plan: 1. Continue symptomatic and supportive care 2. Daily CBC, transfuse for hemoglobin less than 7 3. Continue with recommendations from hematology 4. May resume Eliquis 5. No plans on endoscopic evaluation at this time Thank you for this consultation, we will continue to follow. Dr. Clayton Reddy I agree with the dictator's note, documented as a scribe by Elysia Porter.
--- NOTE | 2023-10-03 14:17 | P.PN ---
Subjective Progress Note Date: 10/03/23 Principal diagnosis: AIHA In f/u today pt reports that she is expectorating, breathing feels less labored SOB is less, cough persists. No fevers, nausea or vomiting, bleeding, she is tolerating oral intake, she is ambulatory. Objective - Vital Signs Vital signs: Vital Signs Temp 98.4 F 10/03/23 08:00 Pulse 88 10/03/23 12:11 Resp 18 10/03/23 12:11 BP 133/68 10/03/23 08:00 Pulse Ox 97 10/03/23 08:00 FiO2 Intake & Output 10/02/23 10/03/23 10/03/23 18:59 06:59 18:59 Intake Total 364.834 Output Total 1700 600 Balance -1335.166 -600 Weight 69.5 kg Intake: Intake, IV Titration 124.834 Amount Immune Globulin ( 107.917 Gammagard) 30 gm In Empty Bag 1 bag @ Per Protocol IV .Q0M ONE Rx#: [id number] Immune Globulin ( 16.917 Gammagard) 5 gm In Empty Bag 1 bag @ Titrate IV . Q0M ONE Rx#:[id number] Oral 240 Output: Urine 1700 600 Other: Voiding Method Indwelling Catheter Indwelling Catheter Indwelling Catheter # Bowel Movements 1 - Constitutional General appearance: Present: average body habitus, cooperative, no acute distress - EENT Eyes: Present: anicteric sclerae, EOMI ENT: Present: hearing grossly normal - Respiratory Respiratory: bilateral: rales - Peripheral edema leg Peripheral Edema: bilateral: None - Gastrointestinal General gastrointestinal: Present: soft - Integumentary Integumentary: Present: normal - Neurologic Neurologic: Present: CNII-XII intact - Musculoskeletal Musculoskeletal: Present: strength equal bilaterally - Psychiatric Psychiatric: Present: A&O x's 3, appropriate affect, intact judgment & insight - Labs CBC & Chem 7: 10/03/23 08:35 10/03/23 08:35 Labs: Abnormal Lab Results - Last 24 Hours (Table) 10/03/23 10/03/23 Range/Units 08:35 08:35 RBC 2.45 L (3.80-5.40) m/uL Hgb 7.8 L (11.4-16.0) gm/dL Hct 24.3 L (34.0-46.0) % RDW 24.6 H (11.5-15.5) % Lymphocytes # (Manual) 0.39 L (1.0-4.8) k/uL Metamyelocytes # (Man) 0.16 H (0) k/uL Nucleated RBCs 47 H (0-0) /100 WBC Glucose 158 H (74-99) mg/dL Microbiology - Last 24 Hours (Table) 09/30/23 07:57 Blood Culture - Preliminary Blood 09/29/23 06:37 Legionella Culture - Preliminary Sputum Assessment and Plan (1) Autoimmune hemolytic anemia Current Visit: Yes Status: Acute Code(s): D59.10 - AUTOIMMUNE HEMOLYTIC ANEMIA, UNSPECIFIED SNOMED Code(s): 138325670 (2) RSV (respiratory syncytial virus pneumonia) Current Visit: Yes Status: Acute Code(s): J12.1 - RESPIRATORY SYNCYTIAL VIRUS PNEUMONIA SNOMED Code(s): 823835997 (3) Pulmonary embolism Current Visit: Yes Status: Acute Priority: High Code(s): I26.99 - OTHER PULMONARY EMBOLISM WITHOUT ACUTE COR PULMONALE SNOMED Code(s): 88581918 Plan: AIHA -Labs suggestive of the same -Exacerbated by acute RSV infection -Hgb 7.8 today s/p 1 unit PRBCs least incompatible blood for Hgb 6 on 10/01 -Started on prednisone 09/30, changed to solumedrol 10/01, solumedrol dose divided and reduced. Will return to oral pred dosing tomorrow -IVIG ordered for divided dose, she will receive 2 infusions Leukocytosis -WBC normal today? Not sure if lab anomaly. CBC in AM RSV -ID following, pt improving Pulmonary embolism -From 1 note received it sounds as though pt had PE possibly in Jul/Aug (note states on 09/06 "pt ok to continue eliquis with recent pulmonary embolism") -Would recommend resuming eliquis as soon as felt ok to do so. Pt drop in Hgb most consistent with hemolysis vs bleeding. Not sure if any procedures are planned so will defer resuming eliquis to IM attests: I seen and examined patient, performed H&P, developed impression and plan of care. Discussed with dictator. Agree with documentation, dictated as a scribe.
[2023-10-03] MEDS: APIXABAN 5 MG TAB PO SCH ×2 (16:12→21:01)
--- NOTE | 2023-10-03 19:11 | P.PN ---
Subjective This is a pleasant 78 years old female with multiple medical problems including history of autoimmune hemolytic anemia status post 6-7 times of blood transfusion over the last 3 years, hypertension, deep venous thrombosis on eliquis Patient state that she's been in the [facility] for about 2 months because of difficulty walking, improvement as she can get up with health now and she can walk with a walker with little help as well. Both she still needs rehab as she states. She was sent from [facility] for abnormal chest x-ray suspicious for tuberculosis per report which is place and the system now. Patient currently lying in bed on room air, looks comfortable, not tachypnea at rest. She denies dyspnea but she states she has been coughing with clear phlegm for about 3 days About 3 days ago a Beauchamp catheter has placed for her in the rehab but she cannot tell 1. Currently she denies any dysuria urgency, no flank pain or suprapubic pain or tenderness. No headache dizziness weakness or numbness or blurred vision. Patient states that she has history of hemolytic anemia and she received about 67 blood transfusion over the last 2 years and her class c driver is Dr. Martines. She denies smoking alcohol or illicit drugs. On admission she had a fever of 101.9. Blood pressure was low normal 102/52, heart rate 99, she is saturating 97% on room air. Echo psychosis 21,000, hemoglobin 6.6 came back down to 6.0. Potassium 2.8, total bilirubin 2.8, AST and ALT are within the reference range. C-reactive protein elevated 15.8 and 4calcitonin 6.7. Folate is 19. Urine analysis looks turbid sample Influenza A and type B, SARS (coronavirus) are and detected, RSV test came back positive Chest x-ray: Septal scattered opacity which may represent an atypical pneumonia versus chronic scarring per neurologist. She was started on Rocephin and Zithromax and emergency room with normal saline at 75 mL/h and she was continued on Eliquis a planned to get one of blood transfusion now 09/30/2023 Patient still complains from some tachypnea and coughing but no overt chest pain. She is complaining of from some diarrhea today No abdominal pain, no vomiting She is hemodynamically stable, blood pressure improved, she is currently on room air. No more fever. Labs from today are pending CT of the chest showing no pulmonary cavitary lesion to suspect active DVT but she has trace bilateral pleural effusion suspicious for fluid overload, also she has 4 mm lung nodule. Her pro-calcitonin is elevated 6.7 Her 20. On is pending, urobilinogen was pending, B12 is elevated 10:30, folate is acceptable at 19.4. Anemia studies showing anemia of chronic disease with low TIBC and high ferritin Her blood culture came back positive for resistant E. coli and her antibiotics were switched to meropenem. D5 normal saline was stopped in 1 domes of Lasix IV 4 mg given. She is also on Eliquis 5 mg Beam Doffer/oncologist in a started prednisone 70 mg daily for aortic possible autoimmune hemolytic anemia. However workup for hemolytic anemia was unrevealing with normal haptoglobin and normal indirect bilirubin Resume the care of the patient on 10/03/2023 Patient currently resting in bed with no dyspnea She is coughing a lot with white phlegm, Robitussin is added No chest pain. Patient denies any evidence of GI bleed or blood per rectum. Occult blood in stool checked and was negative GI consult obtained and I discussed the case with them, most likely patient has autoimmune hemolysis rather than GI bleed and they recommended to resume Eliquis with close monitoring of hemoglobin Patient status post IVIG per class c driver team. She remains on some Medrol 60 mg every 8 hours. Continue with meropenem for bilateral atypical pneumonia with resistant E. coli bacteremia. Review of systems CONSTITUTIONAL: No fever, no malaise, no fatigue. HEENT: No recent visual problems or hearing problems. Denied any sore throat. CARDIOVASCULAR: No orthopnea, PND, no palpitations, no syncope. PULMONARY: No shortness of breath, no cough, no hemoptysis. GASTROINTESTINAL: No diarrhea, no nausea, no vomiting, no abdominal pain. Normoactive bowel sounds. Active Medications Generic Name Dose Route Start Last Admin Trade Name Freq PRN Reason Stop Dose Admin Acetaminophen 650 mg 09/28/23 21:52 Acetaminophen Tab 325 Mg Tab PO Q6HR PRN Mild Pain or Fever > 100.5 Hydrocodone Bitart/Acetaminophen 1 each 09/28/23 21:52 09/29/23 00:38 Hydrocodone/Apap 5-325mg 1 Each Tab PO 1 each Q4HR PRN Administration Moderate Pain (Scale 4 to 6) Albuterol Sulfate 2.5 mg 10/02/23 08:00 10/03/23 16:35 Albuterol Nebulized 2.5 Mg/3 Ml INHALATION 2.5 mg RT-QID RIZWANA Administration Albuterol Sulfate 2.5 mg 10/01/23 22:19 Albuterol Nebulized 2.5 Mg/3 Ml INHALATION RT-QID PRN Shortness Of Breath Or Wheezing Apixaban 5 mg 10/03/23 11:45 10/03/23 16:12 Apixaban 5 Mg Tab PO 5 mg BID RIZWANA Administration Protocol Budesonide 0.5 mg 10/02/23 08:00 10/03/23 08:57 Budesonide 0.5 Mg/2 Ml Nebu INHALATION 0.5 mg RT-BID RIZWANA Administration Furosemide 20 mg 09/29/23 09:00 10/03/23 08:39 Furosemide 20 Mg Tab PO 20 mg DAILY RIZWANA Administration Guaifenesin/Dextromethorphan 10 ml 09/29/23 12:40 10/02/23 13:00 Guaifenesin-Dm 100-10mg/5ml 10 Ml Cup PO 10 ml Q6HR PRN Administration Cough Meropenem 1 gm/ Sodium 100 mls @ 33.3 mls/hr 09/30/23 00:00 10/03/23 16:12 Chloride IVPB 33.3 mls/hr Q8HR RIZWANA Administration Protocol Magnesium Oxide 400 mg 10/03/23 09:00 10/03/23 08:39 Magnesium Oxide 400 Mg Tab PO 400 mg BID RIZWANA Administration Melatonin 3 mg 09/28/23 21:52 Melatonin 3 Mg Tablet PO HS PRN Insomnia Methylprednisolone Sodium Succinate 60 mg 10/03/23 00:00 10/03/23 16:12 Methylprednisolone Sod Succi 125 Mg/2 Ml Vial IV 60 mg Q8HR RIZWANA Administration Metoprolol Tartrate 50 mg 09/29/23 09:00 10/03/23 08:39 Metoprolol Tartrate 50 Mg Tab PO 50 mg BID RIZWANA Administration Miscellaneous Information 1 each 09/28/23 21:55 Pneumonia Protocol Utilized 1 Each Misc PO ONCE PRN Per Protocol Miscellaneous Information 1 each 10/01/23 09:33 Potassium Replacement Protocol 1 Each Misc MISCELLANE DAILY PRN Per Protocol Protocol Miscellaneous Information 1 each 10/02/23 08:59 Magnesium Replacement Protocol 1 Each Misc MISCELLANE DAILY PRN Per Protocol Protocol Multivitamins 1 each 09/29/23 09:00 10/03/23 08:39 Multivitamins, Thera 1 Each Tab PO 1 each DAILY RIZWANA Administration Naloxone HCl 0.2 mg 09/28/23 21:52 Naloxone 0.4 Mg/Ml 1 Ml Vial IV Q2M PRN Opioid Reversal Nifedipine 30 mg 09/29/23 09:00 10/03/23 08:39 Nifedipine Xl 30 Mg Tab.Er.24 PO 30 mg DAILY RIZWANA Administration Non-Formulary Medication 70 mg 09/29/23 05:00 09/29/23 06:23 Alendronate Sodium [Fosamax] PO Not Given SA@0500 RIZWANA Non-Formulary Medication 1 tab 09/29/23 09:00 10/03/23 08:40 Guaifenesin/Pseudoephedrne Hcl [Mucinex D Er 1,200-120 Mg Tab] PO 10/05/23 21:01 Not Given Q12H RIZWANA Ondansetron HCl 4 mg 09/28/23 21:52 Ondansetron 4 Mg/2 Ml Vial IVP Q8HR PRN Nausea And Vomiting Pantoprazole Sodium 40 mg 09/29/23 07:30 10/03/23 16:12 Pantoprazole 40 Mg Tablet PO 40 mg AC-BID RIZWANA Administration Potassium Chloride 20 meq 09/29/23 09:00 10/03/23 08:39 Potassium Chloride Er 20 Meq Tab.Er PO 10/05/23 09:01 20 meq DAILY RIZWANA Administration Sucralfate 1 gm 09/29/23 09:00 10/03/23 08:39 Sucralfate 1 Gm Tab PO 1 gm BID RIZWANA Administration Tamsulosin HCl 0.4 mg 09/29/23 21:00 10/02/23 19:55 Tamsulosin 0.4 Mg Cap.Er.24h PO 0.4 mg HS RIZWANA Administration Objective - Vital Signs Vital signs: Vital Signs Temp 98.4 F 10/03/23 08:00 Pulse 92 10/03/23 09:10 Resp 18 10/03/23 09:10 BP 133/68 10/03/23 08:00 Pulse Ox 97 10/03/23 08:00 FiO2 Intake & Output 10/02/23 10/03/23 10/03/23 18:59 06:59 18:59 Intake Total 364.834 Output Total 1700 600 Balance -1335.166 -600 Weight 69.5 kg Intake: Intake, IV Titration 124.834 Amount Immune Globulin ( 107.917 Gammagard) 30 gm In Empty Bag 1 bag @ Per Protocol IV .Q0M ONE Rx#: [id number] Immune Globulin ( 16.917 Gammagard) 5 gm In Empty Bag 1 bag @ Titrate IV . Q0M ONE Rx#:[id number] Oral 240 Output: Urine 1700 600 Other: Voiding Method Indwelling Catheter Indwelling Catheter Indwelling Catheter # Bowel Movements 1 - Exam GENERAL: The patient is alert and oriented x3, not in any acute distress. Well developed, well nourished. HEENT: Pupils are round and equally reacting to light. EOMI. No scleral icterus. No conjunctival pallor. Normocephalic, atraumatic. No pharyngeal erythema. No thyromegaly. CARDIOVASCULAR: S1 and S2 present. No murmurs, rubs, or gallops. -PULMONARY: Chest is clear to auscultation, no wheezing , no crackles. Bilat eral harsh breath sound, mildly tachypneics ABDOMEN: Soft, nontender, nondistended, normoactive bowel sounds. No palpable organomegaly. MUSCULOSKELETAL: No joint swelling or deformity. EXTREMITIES: No cyanosis, clubbing, or pedal edema. NEUROLOGICAL: Gross neurological examination did not reveal any focal deficits. SKIN: No rashes. no petechiae. - Labs CBC & Chem 7: 10/03/23 08:35 10/03/23 08:35 Labs: Abnormal Lab Results - Last 24 Hours (Table) 10/03/23 10/03/23 Range/Units 08:35 08:35 RBC 2.45 L (3.80-5.40) m/uL Hgb 7.8 L (11.4-16.0) gm/dL Hct 24.3 L (34.0-46.0) % RDW 24.6 H (11.5-15.5) % Lymphocytes # (Manual) 0.39 L (1.0-4.8) k/uL Metamyelocytes # (Man) 0.16 H (0) k/uL Nucleated RBCs 47 H (0-0) /100 WBC Glucose 158 H (74-99) mg/dL Microbiology - Last 24 Hours (Table) 09/30/23 07:57 Blood Culture - Preliminary Blood 09/29/23 06:37 Legionella Culture - Preliminary Sputum Assessment and Plan Assessment: Sepsis with fever and leukocytosis Bacteremia with resistant E. coli Bilateral atypical pneumonia, versus healthcare associated pneumonia Significant anemia mostly likely secondary to autoimmune hemolytic anemia. GI bleed felt Less likely h/o deep venous thrombosis on eliquis Abnormal urine analysis most likely asymptomatic bacteriuria associated with Beauchamp catheter Possible recent history of urinary retention status post Beauchamp catheter about 3- 4 days prior to this hospitalization. During catheter was discontinued Plan: Continue with antibiotic, we'll going to consult infectious disease team for antibiotic management. Currently on meropenem Patient is status post 2 units of blood transfusion and monitor hemoglobin. Electrolytes per protocol continue with [facility] Hematology disease consult Check a bladder scan GI input is appreciated and the recommend to resume a Eliquis labs and medication were reviewed.. Continue same treatment. Continue with symptomatic treatment. Resume home medication. Monitor labs and vitals. DVT and GI prophylaxis. Further recommendations as per clinical course of the patient DVT prophylaxis: SCD and Eliquis GI Prophylaxis: PPI Prognosis is guarded
[2023-10-03] MEDS: TAMSULOSIN 0.4 MG CAP.ER.24H PO SCH (21:01)
[2023-10-03] MEDS: guaiFENesin-DM 100-10MG/5ML 10 ML CUP PO SCH ×2 (22:24→22:25)
[2023-10-04] MEDS: methylPREDNISolone SOD SUCCI 125 MG/2 ML VIAL IV SCH ×4 (00:53→23:34)
[2023-10-04] MEDS: MEROPENEM 1 GM in SODIUM CHLORIDE 0.9% 100 ML IVPB SCH ×2 (00:53→09:55)
[2023-10-04] MEDS: PANTOPRAZOLE 40 MG TABLET PO SCH ×2 (06:30→16:27)
[2023-10-04] MEDS: guaiFENesin-DM 100-10MG/5ML 10 ML CUP PO SCH ×4 (06:30→23:34)
[2023-10-04] MEDS: ALBUTEROL NEBULIZED 2.5 MG/3 ML INHALATION SCH ×4 (08:44→21:34)
[2023-10-04] MEDS: BUDESONIDE 0.5 MG/2 ML NEBU INHALATION SCH ×2 (08:44→21:34)
[2023-10-04] MEDS: MULTIVITAMINS, THERA 1 EACH TAB PO SCH (08:48)
[2023-10-04] MEDS: MAGNESIUM OXIDE 400 MG TAB PO SCH ×2 (08:48→20:56)
[2023-10-04] MEDS: NIFEdipine XL 30 MG TAB.ER.24 PO SCH (08:48)
[2023-10-04] MEDS: POTASSIUM CHLORIDE ER 20 MEQ TAB.ER PO SCH (08:48)
[2023-10-04] MEDS: APIXABAN 5 MG TAB PO SCH ×2 (08:48→20:56)
[2023-10-04] MEDS: FUROSEMIDE 20 MG TAB PO SCH (08:48)
[2023-10-04] MEDS: SUCRALFATE 1 GM TAB PO SCH ×2 (08:48→20:56)
[2023-10-04] MEDS: METOPROLOL TARTRATE 50 MG TAB PO SCH ×2 (08:48→20:56)
--- NOTE | 2023-10-04 09:25 | P.PN ---
Subjective Progress Note Date: 09/30/23 Principal diagnosis: Reason for follow-up is RSV and ESBL E. coli bacteremia Patient is a 78-year-old female with a past medical history significant for autoimmune hemolytic anemia DVT hypertension apparently the patient did have a prolonged hospitalization at [facility] and subsequently patient [facility] patient apparentl y did have x-ray which was read as fibrocalcific changes and the patient was sent to the ER to rule out TB patient also noticed to have a fever elevated white count tested positive for RSV did have a positive UA and blood cultures are coming back positive with ESBL E. coli. On today's evaluation that is 09/30/2023 patient did have resolution of her fever and is afebrile this morning patient is breathing comfortably on room air without need for supplemental oxygen patient denies having any chest pain she continued to have a cough not bring up any sputum no nausea no vomiting no abdominal pain or diarrhea. Patient did have a normal bilirubin no CBC or BMP was done today blood cultures with ESBL E. coli. Objective - Vital Signs Vital signs: Vital Signs Temp 97.8 F 09/30/23 07:00 Pulse 108 H 09/30/23 07:00 Resp 19 09/30/23 07:00 BP 129/70 09/30/23 07:00 Pulse Ox 93 L 09/30/23 07:00 FiO2 Intake & Output 09/29/23 09/30/23 09/30/23 18:59 06:59 18:59 Intake Total 293 118 Output Total 650 Balance 293 -650 118 Intake: Oral 293 118 Output: Urine 650 Other: Voiding Method Indwelling Catheter Indwelling Catheter # Bowel Movements 1 - Exam GENERAL DESCRIPTION: An elderly female lying in bed in no distress RESPIRATORY SYSTEM: Unlabored breathing , coarse breath sounds bilaterally HEART: S1 S2 regular rate and rhythm , ABDOMEN: Soft , no tenderness EXTREMITIES: No edema feet - Labs CBC & Chem 7: 10/03/23 08:35 10/03/23 08:35 Labs: Abnormal Lab Results - Last 24 Hours (Table) 09/29/23 09/29/23 Range/Units 06:25 06:25 Retic Count 9.0 H (0.5-2.0) % Creatinine 0.5 L (0.6-1.5) mg/dL BUN/Creatinine Ratio 34.20 H (12.00-20.00) Ratio Glucose 152 H (70-110) mg/dL Calcium 8.0 L (8.7-10.3) mg/dL Total Bilirubin 1.6 H (0.3-1.2) mg/dL Conjugated Bilirubin 0.66 H (0.20-0.40) mg/dL Total Protein 4.6 L (6.2-8.2) g/dL Albumin 2.9 L (3.8-4.9) g/dL Microbiology - Last 24 Hours (Table) 09/29/23 06:37 Gram Stain - Preliminary Sputum 09/28/23 23:00 Blood Culture Gram Stain - Preliminary Blood 09/28/23 23:15 Blood Culture Gram Stain - Preliminary Blood Assessment and Plan (1) Sepsis Current Visit: Yes Status: Acute Code(s): A41.9 - SEPSIS, UNSPECIFIED ORGANISM SNOMED Code(s): 53316672 (2) UTI (urinary tract infection) Current Visit: Yes Status: Acute Code(s): N39.0 - URINARY TRACT INFECTION, SITE NOT SPECIFIED SNOMED Code(s): 13263533 (3) ESBL (extended spectrum beta-lactamase) producing bacteria infection Current Visit: Yes Status: Acute Code(s): A49.9 - BACTERIAL INFECTION, UNSPECIFIED; Z16.12 - EXTENDED SPECTRUM BETA LACTAMASE (ESBL) RESISTANCE SN OMED Code(s): 526463011 (4) RSV (respiratory syncytial virus pneumonia) Current Visit: Yes Status: Acute Code(s): J12.1 - RESPIRATORY SYNCYTIAL VIRUS PNEUMONIA SNOMED Code(s): 363603629 Plan: 1-patient was in the hospital with sepsis source is multifactorial in this patient who did have predominant respiratory symptoms which could be related to RSV underlying secondary bacterial pneumonia less likely, patient did have a CT of the chest no evidence of any cavitary lesion to suggest TB cardiomegaly with trace bilateral effusion 2-patient did have ESBL E. coli bacteremia source is likely urinary/catheter associated UTI. 3blood culture to be to document clearance of bacteremia. 4patient to continue with the meropenem and monitor clinical course closely Dictation was produced using [employer] dictation software. please excuse any grammatical, word or spelling errors.
--- NOTE | 2023-10-04 09:28 | P.PN ---
Subjective Progress Note Date: 10/01/23 Principal diagnosis: Reason for follow-up is RSV and ESBL E. coli bacteremia Patient is a 78-year-old female with a past medical history significant for autoimmune hemolytic anemia DVT hypertension apparently the patient did have a prolonged hospitalization at [facility] and subsequently patient was [facility] patient apparentl y did have x-ray which was read as fibrocalcific changes and the patient was sent to the ER to rule out TB patient also noticed to have a fever elevated white count tested positive for RSV did have a positive UA and blood cultures are coming back positive with ESBL E. coli. On today's evaluation that is 10/01/2023 patient remains to be afebrile, patient is breathing comfortably on 2 L nasal cannula oxygen, patient denies having any chest pain the patient continued to have moderate cough not bring up any sputum no nausea no vomiting no abdominal pain or diarrhea. Patient white count is down to 19.1, creatinine 0.49 blood culture with ESBL E. coli unfortunately urine culture was not done Objective - Vital Signs Vital signs: Vital Signs Temp 98.2 F 10/01/23 11:21 Pulse 92 10/01/23 11:21 Resp 20 10/01/23 11:21 BP 146/74 10/01/23 11:21 Pulse Ox 92 L 10/01/23 11:21 FiO2 Intake & Output 09/30/23 10/01/23 10/01/23 18:59 06:59 18:59 Intake Total 236 419.25 Output Total 2350 550 100 Balance -2114 -550 319.25 Intake: Intake, IV Titration 61.25 Amount Immune Globulin ( 61.25 Gammagard) 30 gm In Empty Bag 1 bag @ Per Protocol IV .Q0M ONE Rx#: [id number] Oral 236 358 Output: Urine 2350 550 100 Other: Voiding Method Indwelling Catheter Indwelling Catheter Indwelling Catheter - Exam GENERAL DESCRIPTION: An elderly female lying in bed in no distress RESPIRATORY SYSTEM: Unlabored breathing , coarse breath sounds bilaterally HEART: S1 S2 regular rate and rhythm , ABDOMEN: Soft , no tenderness EXTREMITIES: No edema feet - Labs CBC & Chem 7: 10/03/23 08:35 10/03/23 08:35 Labs: Abnormal Lab Results - Last 24 Hours (Table) 09/29/23 09/29/23 09/30/23 Range/Units 02:00 06:25 14:08 WBC (3.8-10.6) k/uL RBC (3.80-5.40) m/uL Hgb (11.4-16.0) gm/dL Hct (34.0-46.0) % RDW (11.5-15.5) % Neutrophils # (Manual) (1.3-7.7) k/uL Lymphocytes # (Manual) (1.0-4.8) k/uL Metamyelocytes # (Man) (0) k/uL Myelocytes # (Manual) (0) k/uL Nucleated RBCs (0-0) /100 WBC Retic Count 7.9 H (0.5-2.0) % Potassium (3.5-5.1) mmol/L Creatinine (0.52-1.04) mg/dL Total Bilirubin 1.6 H (0.3-1.2) mg/dL Conjugated Bilirubin 0.60 H (0.20-0.40) mg/dL Lactate Dehydrogenase 366 H (120-246) U/L Total Protein (6.3-8.2) g/dL Albumin (3.5-5.0) g/dL Crossmatch See Detail Blood Bank Comment Sent to [facility] A Reference Lab Result See BBK REF Reports A 09/30/23 10/01/23 10/01/23 Range/Units 14:08 07:27 07:27 WBC 19.1 H (3.8-10.6) k/uL RBC 1.91 L (3.80-5.40) m/uL Hgb 6.0 L* (11.4-16.0) gm/dL Hct 18.7 L* (34.0-46.0) % RDW 21.6 H (11.5-15.5) % Neutrophils # (Manual) 12.42 H (1.3-7.7) k/uL Lymphocytes # (Manual) 5.92 H (1.0-4.8) k/uL Metamyelocytes # (Man) 0.38 H (0) k/uL Myelocytes # (Manual) 0.19 H (0) k/uL Nucleated RBCs 16 H (0-0) /100 WBC Retic Count (0.5-2.0) % Potassium 3.0 L (3.5-5.1) mmol/L Creatinine 0.49 L (0.52-1.04) mg/dL Total Bilirubin (0.3-1.2) mg/dL Conjugated Bilirubin (0.20-0.40) mg/dL Lactate Dehydrogenase 338 H (120-246) U/L Total Protein 5.1 L (6.3-8.2) g/dL Albumin 2.8 L (3.5-5.0) g/dL Crossmatch Blood Bank Comment Reference Lab Result Microbiology - Last 24 Hours (Table) 09/29/23 06:37 Gram Stain - Final Sputum Sputum Culture - Final 09/28/23 23:15 Blood Culture Gram Stain - Final Blood Blood Culture - Final Escherichia coli 09/28/23 23:00 Blood Culture Gram Stain - Final Blood Blood Culture - Final Escherichia coli Assessment and Plan (1) ESBL (extended spectrum beta-lactamase) producing bacteria infection Current Visit: Yes Status: Acute Code(s): A49.9 - BACTERIAL INFECTION, UNSPECIFIED; Z16.12 - EXTENDED SPECTRUM BETA LACTAMASE (ESBL) RESISTANCE SNOMED Code(s): 008981351 (2) RSV (respiratory syncytial virus pneumonia) Current Visit: Yes Status: Acute Code(s): J12.1 - RESPIRATORY SYNCYTIAL VIRUS PNEUMONIA SNOMED Code(s): 020665318 (3) UTI (urinary tract infection) Current Visit: Yes Status: Acute Code(s): N39.0 - URINARY TRACT INFECTION, SITE NOT SPECIFIED SNOMED Code(s): 96234254 Plan: 1-patient was in the hospital with sepsis source is multifactorial in this patient who did have predominant respiratory symptoms which could be related to RSV underlying secondary bacterial pneumonia less likely, patient did have a CT of the chest no evidence of any cavitary lesion to suggest TB cardiomegaly with trace bilateral effusion 2-patient did have ESBL E. coli bacteremia source is likely urinary/catheter associated UTI., Unfortunately no urine culture done 3blood culture has been repeated 09/30/2023 document clearance of bacteremia. 4patient to continue with the meropenem and continue with supportive care Dictation was produced using [employer] dictation software. please excuse any gram matical, word or spelling errors.
--- NOTE | 2023-10-04 09:32 | P.PN ---
Subjective Progress Note Date: 10/02/23 Principal diagnosis: Reason for follow-up is RSV and ESBL E. coli bacteremia Patient is a 78-year-old female with a past medical history significant for autoimmune hemolytic anemia DVT hypertension apparently the patient did have a prolonged hospitalization at [facility] and subsequently patient was transferred to the local shelter patient apparentl y did have x-ray which was read as fibrocalcific changes and the patient was sent to the ER to rule out TB patient also noticed to have a fever elevated white count tested positive for RSV did have a positive UA and blood cultures are coming back positive with ESBL E. coli. On today's evaluation that is 10/02/2023 patient continues to be afebrile, patient is breathing comfortably on 2 L nasal cannula oxygen, patient denies having any chest pain the patient denies any worsening cough or sputum p roduction patient denies any abdominal pain no nausea no vomiting or any diarrhea. Patient white count slightly up today at 26.1 today, creatinine 0.50 Objective - Vital Signs Vital signs: Vital Signs Temp 98 F 10/02/23 08:43 Pulse 82 10/02/23 09:00 Resp 20 10/02/23 08:43 BP 144/78 10/02/23 08:43 Pulse Ox 93 L 10/02/23 08:43 FiO2 Intake & Output 10/01/23 10/02/23 18:59 18:59 Intake Total 480 Output Total Balance 480 Weight Intake: Oral 480 Output: Urine Other: Voiding Method Indwelling Catheter - Exam GENERAL DESCRIPTION: An elderly female lying in bed in no distress RESPIRATORY SYSTEM: Unlabored breathing , coarse breath sounds bilaterally HEART: S1 S2 regular rate and rhythm , ABDOMEN: Soft , no tenderness EXTREMITIES: No edema feet - Labs CBC & Chem 7: 10/03/23 08:35 10/03/23 08:35 Labs: Abnormal Lab Results - Last 24 Hours (Table) 10/03/23 10/03/23 Range/Units 08:35 08:35 RBC 2.45 L (3.80-5.40) m/uL Hgb 7.8 L (11.4-16.0) gm/dL Hct 24.3 L (34.0-46.0) % RDW 24.6 H (11.5-15.5) % Lymphocytes # (Manual) 0.39 L (1.0-4.8) k/uL Metamyelocytes # (Man) 0.16 H (0) k/uL Nucleated RBCs 47 H (0-0) /100 WBC Glucose 158 H (74-99) mg/dL Microbiology - Last 24 Hours (Table) 09/30/23 07:57 Blood Culture - Preliminary Blood Assessment and Plan (1) ESBL (extended spectrum beta-lactamase) producing bacteria infection Current Visit: Yes Status: Acute Code(s): A49.9 - BACTERIAL INFECTION, UNSPECIFIED; Z16.12 - EXTENDED SPECTRUM BETA LACTAMASE (ESBL) RESISTANCE SNOMED Code(s): 319430037 (2) RSV (respiratory syncytial virus pneumonia) Current Visit: Yes Status: Acute Code(s): J12.1 - RESPIRATORY SYNCYTIAL VIRUS PNEUMONIA SNOMED Code(s): 378546875 (3) UTI (urinary tract infection) Current Visit: Yes Status: Acute Code(s): N39.0 - URINARY TRACT INFECTION, SITE NOT SPECIFIED SNOMED Code(s): 97453675 Plan: 1-patient was in the hospital with sepsis source is multifactorial in this patient who did have predominant respiratory symptoms which could be related to RSV underlying secondary bacterial pneumonia less likely, patient did have a CT of the chest no evidence of any cavitary lesion to suggest TB cardiomegaly with trace bilateral effusion 2-patient did have ESBL E. coli bacteremia source is likely urinary/catheter associated UTI., Unfortunately no urine culture done 3blood culture has been repeated 09/30/2023 document clearance of bacteremia. And those cultures are negative so far 4patient to continue with the meropenem while waiting for stabilization of her respiratory status and monitor clinical course closely Dictation was produced using [employer] dictation software. please excuse any grammatical, word or spelling errors.
--- NOTE | 2023-10-04 09:35 | P.PN ---
Subjective Progress Note Date: 10/03/23 Principal diagnosis: Reason for follow-up is RSV and ESBL E. coli bacteremia Patient is a 78-year-old female with a past medical history significant for autoimmune hemolytic anemia DVT hypertension apparently the patient did have a prolonged hospitalization at [facility] and subsequently patient was transferred to the local assisted patient apparentl y did have x-ray which was read as fibrocalcific changes and the patient was sent to the ER to rule out TB patient also noticed to have a fever elevated white count tested positive for RSV did have a positive UA and blood cultures are coming back positive with ESBL E. coli. On today's evaluation that is 10/03/2023 patient denies any fever or any chills, patient is breathing comfortably on 2 L nasal cannula oxygen, patient denies chest pain the patient cough has slightly decreased in intensity and not bringing up any sputum. Denies having any abdominal pain no nausea no vomiting and no diarrhea has been reported Patient white count has normalized to 7.8, creatinine 0.55 blood culture repeat 09/30/2023 has been negative Objective - Vital Signs Vital signs: Vital Signs Temp 98.4 F 10/03/23 08:00 Pulse 88 10/03/23 12:11 Resp 18 10/03/23 12:11 BP 133/68 10/03/23 08:00 Pulse Ox 97 10/03/23 08:00 FiO2 Intake & Output 10/02/23 10/03/23 10/03/23 18:59 06:59 18:59 Intake Total 364.834 Output Total 1700 600 Balance -1335.166 -600 Weight 69.5 kg Intake: Intake, IV Titration 124.834 Amount Immune Globulin ( 107.917 Gammagard) 30 gm In Empty Bag 1 bag @ Per Protocol IV .Q0M ONE Rx#: [id number] Immune Globulin ( 16.917 Gammagard) 5 gm In Empty Bag 1 bag @ Titrate IV . Q0M ONE Rx#:[id number] Oral 240 Output: Urine 1700 600 Other: Voiding Method Indwelling Catheter Indwelling Catheter Indwelling Catheter # Bowel Movements 1 - Exam GENERAL DESCRIPTION: An elderly female lying in bed in no distress RESPIRATORY SYSTEM: Unlabored breathing , coarse breath sounds bilaterally HEART: S1 S2 regular rate and rhythm , ABDOMEN: Soft , no tenderness EXTREMITIES: No edema feet - Labs CBC & Chem 7: 10/03/23 08:35 10/03/23 08:35 Labs: Abnormal Lab Results - Last 24 Hours (Table) 10/03/23 10/03/23 Range/Units 08:35 08:35 RBC 2.45 L (3.80-5.40) m/uL Hgb 7.8 L (11.4-16.0) gm/dL Hct 24.3 L (34.0-46.0) % RDW 24.6 H (11.5-15.5) % Lymphocytes # (Manual) 0.39 L (1.0-4.8) k/uL Metamyelocytes # (Man) 0.16 H (0) k/uL Nucleated RBCs 47 H (0-0) /100 WBC Glucose 158 H (74-99) mg/dL Microbiology - Last 24 Hours (Table) 09/30/23 07:57 Blood Culture - Preliminary Blood 09/29/23 06:37 Legionella Culture - Preliminary Sputum Assessment and Plan (1) ESBL (extended spectrum beta-lactamase) producing bacteria infection Current Visit: Yes Status: Acute Code(s): A49.9 - BACTERIAL INFECTION, UNSPECIFIED; Z16.12 - EXTENDED SPECTRUM BETA LACTAMASE (ESBL) RESISTANCE SNOMED Code(s): 351484800 (2) RSV (respiratory syncytial virus pneumonia) Current Visit: Yes Status: Acute Code(s): J12.1 - RESPIRATORY SYNCYTIAL VIRUS PNEUMONIA SNOMED Code(s): 897739778 (3) UTI (urinary tract infection) Current Visit: Yes Status: Acute Code(s): N39.0 - URINARY TRACT INFECTION, SITE NOT SPECIFIED SNOMED Code(s): 63392405 Plan: 1-patient was in the hospital with sepsis source is multifactorial in this patient who did have predominant respiratory symptoms which could be related to RSV underlying secondary bacterial pneumonia less likely, patient did have a CT of the chest no evidence of any cavitary lesion to suggest TB cardiomegaly with trace bilateral effusion 2-patient did have ESBL E. coli bacteremia source is likely urinary/catheter associated UTI., Unfortunately no urine culture done 3blood culture has been repeated 09/30/2023 document clearance of bacteremia. And those cultures are negative so far 4patient to continue with the meropenem, patient has cleared her bacteremia we will continue with the meropenem plan to finish therapy with Invanz 1 g daily on discharge Dictation was produced using [employer] software. please excuse any gram matical, word or spelling errors.
[2023-10-04 10:06] LABS: Anisocytosis Marked; HCT 25.8 % (34.0-46.0); HGB 8.3 gm/dL (11.4-16.0); Hypochromasia Marked; MCH 32.8 pg (25.0-35.0); MCHC 32.4 g/dL (31.0-37.0); MCV 101.3 fL (80.0-100.0); Macrocytosis Marked; Mean Platelet Volume 8.4; Platelet Count 287 k/uL (150-450); Poikilocytosis Marked; RBC 2.54 m/uL (3.80-5.40); RDW 24.9 % (11.5-15.5)
--- NOTE | 2023-10-04 12:20 | XR ---
EXAMINATION TYPE: XR chest 1V portable DATE OF EXAM: 10/04/2023 COMPARISON: 09/28/2023 HISTORY: Shortness of breath TECHNIQUE: Single frontal view of the chest is obtained. FINDINGS: Left lower lobe consolidation and small bilateral pleural effusion. Underlying COPD. Heart size is normal. The port catheter seen is calcified granuloma left upper lobe. No pneumothorax. Diff use osteopenia and arthropathy of the shoulders. Degenerative changes spine. IMPRESSION: 1. Left lower lobe infiltrate and small pleural effusion.
--- NOTE | 2023-10-04 13:09 | P.PN ---
Subjective This is a pleasant 78 years old female with multiple medical problems including history of autoimmune hemolytic anemia status post 6-7 times of blood transfusion over the last 3 years, hypertension, deep venous thrombosis on eliquis Patient state that she's been in the [facility]hab for about 2 months because of difficulty walking, improvement as she can get up with health now and she can walk with a walker with little help as well. Both she still needs rehab as she states. She was sent from [facility] for abnormal chest x-ray suspicious for tuberculosis per report which is place and the system now. Patient currently lying in bed on room air, looks comfortable, not tachypnea at rest. She denies dyspnea but she states she has been coughing with clear phlegm for about 3 days About 3 days ago a Beauchamp catheter has placed for her in the rehab but she cannot tell 1. Currently she denies any dysuria urgency, no flank pain or suprapubic pain or tenderness. No headache dizziness weakness or numbness or blurred vision. Patient states that she has history of hemolytic anemia and she received about 67 blood transfusion over the last 2 years and her beater out leveling machine is Dr. Martines. She denies smoking alcohol or illicit drugs. On admission she had a fever of 101.9. Blood pressure was low normal 102/52, heart rate 99, she is saturating 97% on room air. Echo psychosis 21,000, hemoglobin 6.6 came back down to 6.0. Potassium 2.8, total bilirubin 2.8, AST and ALT are within the reference range. C-reactive protein elevated 15.8 and 4calcitonin 6.7. Folate is 19. Urine analysis looks turbid sample Influenza A and type B, SARS (coronavirus) are and detected, RSV test came back positive Chest x-ray: Septal scattered opacity which may represent an atypical pneumonia versus chronic scarring per neurologist. She was started on Rocephin and Zithromax and emergency room with normal saline at 75 mL/h and she was continued on Eliquis a planned to get one of blood transfusion now 09/30/2023 Patient still complains from some tachypnea and coughing but no overt chest pain. She is complaining of from some diarrhea today No abdominal pain, no vomiting She is hemodynamically stable, blood pressure improved, she is currently on room air. No more fever. Labs from today are pending CT of the chest showing no pulmonary cavitary lesion to suspect active DVT but she has trace bilateral pleural effusion suspicious for fluid overload, also she has 4 mm lung nodule. Her pro-calcitonin is elevated 6.7 Her 20. On is pending, urobilinogen was pending, B12 is elevated 10:30, folate is acceptable at 19.4. Anemia studies showing anemia of chronic disease with low TIBC and high ferritin Her blood culture came back positive for resistant E. coli and her antibiotics were switched to meropenem. D5 normal saline was stopped in 1 domes of Lasix IV 4 mg given. 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 However workup for hemolytic anemia was unrevealing with normal haptoglobin and normal indirect bilirubin Resume the care of the patient on 10/03/2023 Patient currently resting in bed with no dyspnea She is coughing a lot with white phlegm, Robitussin is added No chest pain. Patient denies any evidence of GI bleed or blood per rectum. Occult blood in stool checked and was negative GI consult obtained and I discussed the case with them, most likely patient has autoimmune hemolysis rather than GI bleed and they recommended to resume Eliquis with close monitoring of hemoglobin Patient status post IVIG per beater out leveling machine team. She remains on some Medrol 60 mg every 8 hours. Continue with meropenem for bilateral atypical pneumonia with resistant E. coli bacteremia. 10/04/2023 Patient is awake alert, she still mildly tachypneic, no chest pain. She is saturating well on room air. The P chest x-ray today showing stable left lower lobe infiltrate She remains on IV antibiotics with meropenem with the plan of discharge her on Invanz 1 g daily however she is not ready for discharge. She still needs to be monitored in the hospital as per discussion with infectious disease team. Also her anemia most likely secondary to autoimmune hemolytic disease, 2 samples of occult blood in the stool were negative. GI service input is appreciated. Eliquis was resumed yesterday, repeat hemoglobin today is a stable at 8.3 compared to 7.8 yesterday. This as there is no evidence of GI bleeds clinically. We will continue Eliquis close monitoring of hemoglobin. Patient remains on IV Solu-Medrol 60 mg for her hemolytic anemia with plan to switch to taper prednisone upon discharge She is status post 2 doses of IVIG. She has a port in the right upper chest where she receives IVIG monthly for the last few years as per patient. Objective - Vital Signs Vital signs: Vital Signs Temp 98 F 10/04/23 11:49 Pulse 84 10/04/23 12:03 Resp 20 10/04/23 11:49 BP 167/76 10/04/23 11:49 Pulse Ox 94 L 10/04/23 11:49 FiO2 Intake & Output 10/03/23 10/04/23 10/04/23 18:59 06:59 18:59 Intake Total 480 Output Total 1200 Balance 480 -1200 Weight 69 kg Intake: Oral 480 Output: Urine 1200 Other: Voiding Method Indwelling Catheter Indwelling Catheter Indwelling Catheter - Exam GENERAL: The patient is alert and oriented x3, not in any acute distress. Well developed, well nourished. HEENT: Pupils are round and equally reacting to light. EOMI. No scleral icterus. No conjunctival pallor. Normocephalic, atraumatic. No pharyngeal erythema. No thyromegaly. CARDIOVASCULAR: S1 and S2 present. No murmurs, rubs, or gallops. -PULMONARY: Chest is clear to auscultation, no wheezing , no crackles. Bilateral harsh breath sound, mildly tachypneics ABDOMEN: Soft, nontender, nondistended, normoactive bowel sounds. No palpable organomegaly. MUSCULOSKELETAL: No joint swelling or deformity. EXTREMITIES: No cyanosis, clubbing, or pedal edema. NEUROLOGICAL: Gross neurological examination did not reveal any focal deficits. SKIN: No rashes. no petechiae. - Labs CBC & Chem 7: 10/04/23 08:46 10/03/23 08:35 Labs: Abnormal Lab Results - Last 24 Hours (Table) 10/04/23 Range/Units 08:46 WBC 12.5 H (3.8-10.6) k/uL RBC 2.54 L (3.80-5.40) m/uL Hgb 8.3 L (11.4-16.0) gm/dL Hct 25.8 L (34.0-46.0) % MCV 101.3 H (80.0-100.0) fL RDW 24.9 H (11.5-15.5) % Macrocytosis Marked A Microbiology - Last 24 Hours (Table) 09/30/23 07:57 Blood Culture - Preliminary Blood Assessment and Plan Assessment: Sepsis with fever and leukocytosis Bacteremia with resistant E. coli Bilateral atypical pneumonia, versus healthcare associated pneumonia Significant anemia mostly likely secondary to autoimmune hemolytic anemia. GI bleed felt Less likely h/o deep venous thrombosis on eliquis Abnormal urine analysis most likely asymptomatic bacteriuria associated with Beauchamp catheter Possible recent history of urinary retention status post Beauchamp catheter about 3- 4 days prior to this hospitalization. During catheter was discontinued Plan: Continue with antibiotic, we'll going to consult infectious disease team for antibiotic management. Currently on meropenem, with plan to discharge on IV Invanz per ID team Patient is status post 2 units of blood transfusion and monitor hemoglobin. Electrolytes per protocol continue with Solu-Medrol. With the plan to switch to taper prednisone upon discharge per beater out leveling machine team recommendation Hematology disease consult Resumed Eliquis with close monitoring of hemoglobin GI team on the case as well labs and medication were reviewed.. Continue same treatment. Continue with symptomatic treatment. Resume home medication. Monitor labs and vitals. DVT and GI prophylaxis. Further recommendations as per clinical course of the patient DVT prophylaxis: SCD and Eliquis GI Prophylaxis: PPI Prognosis is guarded Patient is not quite ready for discharge at
[2023-10-04 13:31] LABS: Lymphocytes # (M) 0.45 k/uL (1.0-4.8); Monocytes # (M) 0.23 k/uL (0-1.0); Neutrophils # (M) 10.62 k/uL (1.3-7.7); Neutrophils % (M) 94 %; Nucleated Red Blood Cells 11 /100 WBC (0-0); Total Cells Counted 200; WBC 11.3 k/uL (3.8-10.6)
[2023-10-04 13:33] LABS: Polychromasia Present; Spherocytes Present
--- NOTE | 2023-10-04 14:14 | P.PN ---
Subjective Progress Note Date: 10/04/23 Principal diagnosis: Reason for follow-up is RSV and ESBL E. coli bacteremia Patient is a 78-year-old female with a past medical history significant for autoimmune hemolytic anemia DVT hypertension apparently the patient did have a prolonged hospitalization at [facility] and subsequently patient was transferred to the local alf patient apparentl y did have x-ray which was read as fibrocalcific changes and the patient was sent to the ER to rule out TB patient also noticed to have a fever elevated white count tested positive for RSV did have a positive UA and blood cultures are coming back positive with ESBL E. coli. On today's evaluation that is 10/04/2023, the patient remains to be afebrile the patient is breathing comfortably on 2 L nasal cannula oxygen patient denies having any chest pain cough decrease intensity mostly dry nature no nausea vomiting no abdominal pain or diarrhea. Patient white count slightly up to 11.3 today creatinine 0.55 blood culture repeat 09/30/2023 has been negative Objective - Vital Signs Vital signs: Vital Signs Temp 98 F 10/04/23 11:49 Pulse 84 10/04/23 12:03 Resp 20 10/04/23 11:49 BP 167/76 10/04/23 11:49 Pulse Ox 94 L 10/04/23 11:49 FiO2 Intake & Output 10/03/23 10/04/23 10/04/23 18:59 06:59 18:59 Intake Total 480 Output Total 1200 Balance 480 -1200 Weight 69 kg Intake: Oral 480 Output: Urine 1200 Other: Voiding Method Indwelling Catheter Indwelling Catheter Indwelling Catheter - Exam GENERAL DESCRIPTION: An elderly female lying in bed in no distress RESPIRATORY SYSTEM: Unlabored breathing , coarse breath sounds bilaterally HEART: S1 S2 regular rate and rhythm , ABDOMEN: Soft , no tenderness EXTREMITIES: No edema feet - Labs CBC & Chem 7: 10/04/23 08:46 10/03/23 08:35 Labs: Abnormal Lab Results - Last 24 Hours (Table) 10/04/23 Range/Units 08:46 WBC 11.3 H (3.8-10.6) k/uL RBC 2.54 L (3.80-5.40) m/uL Hgb 8.3 L (11.4-16.0) gm/dL Hct 25.8 L (34.0-46.0) % MCV 101.3 H (80.0-100.0) fL RDW 24.9 H (11.5-15.5) % Neutrophils # (Manual) 10.62 H (1.3-7.7) k/uL Lymphocytes # (Manual) 0.45 L (1.0-4.8) k/uL Nucleated RBCs 11 H (0-0) /100 WBC Macrocytosis Marked A Microbiology - Last 24 Hours (Table) 09/30/23 07:57 Blood Culture - Preliminary Blood Assessment and Plan (1) ESBL (extended spectrum beta-lactamase) producing bacteria infection Current Visit: Yes Status: Acute Code(s): A49.9 - BACTERIAL INFECTION, UNSPECIFIED; Z16.12 - EXTENDED SPECTRUM BETA LACTAMASE (ESBL) RESISTANCE SNOMED Code(s): 106215429 (2) RSV (respiratory syncytial virus pneumonia) Current Visit: Yes Status: Acute Code(s): J12.1 - RESPIRATORY SYNCYTIAL VIRUS PNEUMONIA SNOMED Code(s): 983840394 (3) UTI (urinary tract infection) Current Visit: Yes Status: Acute Code(s): N39.0 - URINARY TRACT INFECTION, SITE NOT SPECIFIED SNOMED Code(s): 45042857 Plan: 1-patient was in the hospital with sepsis source is multifactorial in this patient who did have predominant respiratory symptoms which could be related to RSV underlying secondary bacterial pneumonia less likely, patient did have a CT of the chest no evidence of any cavitary lesion to suggest TB cardiomegaly with trace bilateral effusion 2-patient did have ESBL E. coli bacteremia source is likely urinary/catheter associated UTI., Unfortunately no urine culture done 3patient blood culture repeated on 09/30/2023 has been negative patient has cleared her bacteremia and the patient has shown clinical improvement 4we will switch meropenem to Invanz 1 g daily to continue for another 12 days on discharge and close out patient follow-up Plan of care discussed with admitting physician Dictation was produced using [employer] dictation software. please excuse any grammatical, word or spelling errors.
[2023-10-04] MEDS: ERTAPENEM 1 GM in SODIUM CHLORIDE 0.9% 50 ML IVPB SCH (14:59)
[2023-10-04 15:08] VITALS: BMI 24.5
--- NOTE | 2023-10-04 15:09 | P.PN ---
Subjective Progress Note Date: 10/04/23 Principal diagnosis: AIHA In f/u today pt reports that she is feeling pretty good, she is wanting to go to rehab and get stronger. She is breathing better. Objective - Vital Signs Vital signs: Vital Signs Temp 98 F 10/04/23 11:49 Pulse 84 10/04/23 12:03 Resp 20 10/04/23 11:49 BP 167/76 10/04/23 11:49 Pulse Ox 94 L 10/04/23 11:49 FiO2 Intake & Output 10/03/23 10/04/23 10/04/23 18:59 06:59 18:59 Intake Total 480 Output Total 1200 Balance 480 -1200 Weight 69 kg 69 kg Intake: Oral 480 Output: Urine 1200 Other: Voiding Method Indwelling Catheter Indwelling Catheter Indwelling Catheter - Constitutional General appearance: Present: average body habitus, cooperative, no acute di stress - EENT Eyes: Present: anicteric sclerae, EOMI ENT: Present: hearing grossly normal - Respiratory Details: resp even and unlabored at rest - Cardiovascular Details: skin warm and dry to touch - Musculoskeletal Musculoskeletal: Present: generalized weakness - Psychiatric Psychiatric: Present: A&O x's 3, appropriate affect, intact judgment & insight - Labs CBC & Chem 7: 10/04/23 08:46 10/03/23 08:35 Labs: Abnormal Lab Results - Last 24 Hours (Table) 10/04/23 Range/Units 08:46 WBC 11.3 H (3.8-10.6) k/uL RBC 2.54 L (3.80-5.40) m/uL Hgb 8.3 L (11.4-16.0) gm/dL Hct 25.8 L (34.0-46.0) % MCV 101.3 H (80.0-100.0) fL RDW 24.9 H (11.5-15.5) % Neutrophils # (Manual) 10.62 H (1.3-7.7) k/uL Lymphocytes # (Manual) 0.45 L (1.0-4.8) k/uL Nucleated RBCs 11 H (0-0) /100 WBC Macrocytosis Marked A Microbiology - Last 24 Hours (Table) 09/30/23 07:57 Blood Culture - Preliminary Blood Assessment and Plan (1) Autoimmune hemolytic anemia Current Visit: Yes Status: Acute Code(s): D59.10 - AUTOIMMUNE HEMOLYTIC ANEMIA, UNSPECIFIED SNOMED Code(s): 501309526 (2) RSV (respiratory syncytial virus pneumonia) Current Visit: Yes Status: Acute Code(s): J12.1 - RESPIRATORY SYNCYTIAL VIRUS PNEUMONIA SNOMED Code(s): 131449818 (3) Pulmonary embolism Current Visit: Yes Status: Acute Priority: High Code(s): I26.99 - OTHER PULMONARY EMBOLISM WITHOUT ACUTE COR PULMONALE SNOMED Code(s): 73391601 Plan: AIHA -Labs suggestive of the same -Exacerbated by acute RSV infection -Hgb 8.3 today s/p 1 unit PRBCs least incompatible blood for Hgb 6 on 10/01 -Started on prednisone 09/30, changed to solumedrol 10/01, solumedrol dose divided and reduced. Cont while inpt. 60mg pred oral daily is recommended dose on D/C. Orders put in DC plan for the same -IVIG x 2 given -Discussed with pt that she needs to call her Primary Chair Caner Dr. Chichi ALVAREZ for prednisone Rx to be sent and taper for when she is discharged from rehab. She verbalized understanding and will have call for that. -Pt will cont 60mg of prednisone daily while in rehab, she is aware and verbalized understanding Leukocytosis -WBC mildly elevated today, steroids, recent infection. RSV -ID following, pt improving Pulmonary embolism -From 1 note received it sounds as though pt had PE possibly in Jul/Aug (note states on 09/06 "pt ok to continue eliquis with recent pulmonary embolism") -Would recommend resuming eliquis as soon as felt ok to do so. Pt drop in Hgb most consistent with hemolysis vs bleeding. Not sure if any procedures are planned so will defer resuming eliquis to IM-eliquis resumed. Hgb 8.3 after 1 unit PRBCs given after steroids started for a Hgb of 6, stable.
--- NOTE | 2023-10-04 16:03 | P.PN ---
Subjective Progress Note Date: 10/04/23 Principal diagnosis: Anemia This a pleasant 70-year-old female autoimmune hemolytic anemia, deep vein thrombosis, and hypertension who was at [facility] for rehab and sent here for concerns for cough and shortness of breath. Patient was admitted on 09/28/2023. Apparently while she was at [facility] she had a chest x-ray that was abnormal and was sent in for further evaluation. She was recently admitted over are in [place] for anemia and required a transfusion about a month ago. She was found to be anemic again during this hospitalization. Hematology was consu lted and report that labs are suggestive of autoimmune hemolytic anemia exacerbated by acute RSV infection. Patient did come in with a hemoglobin of 6.6 and was given 1 unit of blood transfusion with improvement to 8.2 with a repeat today of 7.8. She denies any black stool or blood in her stool, no abdominal pain, nausea or vomiting. No history of peptic ulcer disease. She reports that she had a colonoscopy about 2 years ago which was normal that was done in [place] by Dr. Royal and she had an EGD 4-5 years ago as part of her anemia workup again which was normal. She follows with Dr. Garber of [place] for her autoimmune hemolytic anemia. Patient also on Eliquis or recent blood clot in her arm and history of pulmonary embolism. Currently it is on hold. She has had 2 stool for occult blood tests that have been negative both on 10/01/2023 and 10/03/2023. Patient did test positive for RSV. She was started on prednisone and then changed to Solu-Medrol as well as IVIG per hematology. 10/04/2023 Patient seen and examined sitting up at the bedside. She denies any black stool or blood in her stool. Hemoglobin is stable and actually improved from 7.8-8.3 today. She denies any abdominal pain, nausea or vomiting. Objective - Vital Signs Vital signs: Vital Signs Temp 98.1 F 10/04/23 04:00 Pulse 82 10/04/23 04:00 Resp 16 10/04/23 04:00 BP 169/81 10/04/23 04:00 Pulse Ox 97 10/04/23 04:00 FiO2 Intake & Output 10/03/23 10/04/23 10/04/23 18:59 06:59 18:59 Intake Total 480 Output Total 1200 Balance 480 -1200 Weight 69 kg Intake: Oral 480 Output: Urine 1200 Other: Voiding Method Indwelling Catheter Indwelling Catheter - Exam General appearance: The patient is alert, oriented, appears in no acute distress. HET: Head is normocephalic and atraumatic. Conjunctiva pink. Sclera anicteric. Neck: Supple without lymphadenopathy. Abdomen: Soft, nontender, nondistended with bowel sounds. No guarding or rigidity. Extremities: Normal skin color and turgor. No pedal edema Skin: No rashes, no jaundice Neurological: No focal deficits. Alert and oriented. - Labs CBC & Chem 7: 10/04/23 08:46 10/03/23 08:35 Labs: Abnormal Lab Results - Last 24 Hours (Table) 10/03/23 10/03/23 Range/Units 08:35 08:35 RBC 2.45 L (3.80-5.40) m/uL Hgb 7.8 L (11.4-16.0) gm/dL Hct 24.3 L (34.0-46.0) % RDW 24.6 H (11.5-15.5) % Lymphocytes # (Manual) 0.39 L (1.0-4.8) k/uL Metamyelocytes # (Man) 0.16 H (0) k/uL Nucleated RBCs 47 H (0-0) /100 WBC Glucose 158 H (74-99) mg/dL Microbiology - Last 24 Hours (Table) 09/30/23 07:57 Blood Culture - Preliminary Blood Assessment and Plan (1) Autoimmune hemolytic anemia Narrative/Plan: 78-year-old female diagnosed in 2009 with autoimmune hemolytic anemia who is presenting with a normocytic anemia as low as 6.0 requiring 1 unit of blood transfusion with improvement to 8.2. Iron studies show iron at 10 however ferritin 4322. She has no signs of symptoms of a GI bleed. She's had 2 local stool tests that were negative during this admission. Denies any abdominal pain, nausea or vomiting. No history of GI bleed. Last colonoscopy approximately 2 years ago done at [place] and EGD 4-5 years ago all part of anemia workup that were normal. She is however on Eliquis which has been on hold since this admission for history of recent blood clot and patient's arm and prior pulmonary embolism. This patient was discussed with the hematology and th ey do believe anemia is all related to patient's immune hemolytic anemia and no evidence to suggest GI bleed. No plans on endoscopic evaluation at this time. May resume Eliquis. Current Visit: Yes Status: Acute Code(s): D59.10 - AUTOIMMUNE HEMOLYTIC ANEMIA, UNSPECIFIED SNOMED Code(s): 473401612 (2) RSV (respiratory syncytial virus pneumonia) Current Visit: Yes Status: Acute Code(s): J12.1 - RESPIRATORY SYNCYTIAL VIRUS PNEUMONIA SNOMED Code(s): 980862100 Plan: 1. Continue symptomatic and supportive care 2. Daily CBC, transfuse for hemoglobin less than 7 3. Continue with recommendations from hematology 4. May resume Eliquis 5. No plans on endoscopic evaluation Thank you for this consultation, we will sign off at this time. Dr. Clayton Reddy I agree with the dictator's note, documented as a scribe by Elysia Porter.
[2023-10-04] MEDS: TAMSULOSIN 0.4 MG CAP.ER.24H PO SCH (20:56)
[2023-10-05 02:46] VITALS: RESP 18
[2023-10-05] MEDS: PANTOPRAZOLE 40 MG TABLET PO SCH ×2 (06:50→17:55)
[2023-10-05] MEDS: guaiFENesin-DM 100-10MG/5ML 10 ML CUP PO SCH ×3 (06:51→17:55)
[2023-10-05] MEDS: APIXABAN 5 MG TAB PO SCH (08:22)
[2023-10-05] MEDS: MAGNESIUM OXIDE 400 MG TAB PO SCH (08:22)
[2023-10-05] MEDS: POTASSIUM CHLORIDE ER 20 MEQ TAB.ER PO SCH (08:22)
[2023-10-05] MEDS: SUCRALFATE 1 GM TAB PO SCH (08:22)
[2023-10-05] MEDS: METOPROLOL TARTRATE 50 MG TAB PO SCH (08:22)
[2023-10-05] MEDS: methylPREDNISolone SOD SUCCI 125 MG/2 ML VIAL IV SCH ×2 (08:22→17:55)
[2023-10-05] MEDS: FUROSEMIDE 20 MG TAB PO SCH (08:22)
[2023-10-05] MEDS: MULTIVITAMINS, THERA 1 EACH TAB PO SCH (08:27)
[2023-10-05 08:50] LABS: Anisocytosis Marked; HCT 26.1 % (34.0-46.0); HGB 8.3 gm/dL (11.4-16.0); Hypochromasia Marked; MCH 32.6 pg (25.0-35.0); MCHC 31.8 g/dL (31.0-37.0); MCV 102.5 fL (80.0-100.0); Macrocytosis Marked; Mean Platelet Volume 8.4; Platelet Count 276 k/uL (150-450); Poikilocytosis Marked; RBC 2.54 m/uL (3.80-5.40); RDW 24.5 % (11.5-15.5); WBC 12.1 k/uL (3.8-10.6)
[2023-10-05] MEDS: ERTAPENEM 1 GM in SODIUM CHLORIDE 0.9% 50 ML IVPB SCH (08:53)
[2023-10-05] MEDS: ALBUTEROL NEBULIZED 2.5 MG/3 ML INHALATION SCH ×3 (09:08→16:02)
[2023-10-05] MEDS: BUDESONIDE 0.5 MG/2 ML NEBU INHALATION SCH (09:08)
[2023-10-05] MEDS: NIFEdipine XL 30 MG TAB.ER.24 PO SCH (11:36)
--- NOTE | 2023-10-05 12:56 | P.PN ---
Subjective Progress Note Date: 10/05/23 Principal diagnosis: Reason for follow-up is RSV and ESBL E. coli bacteremia Patient is a 78-year-old female with a past medical history significant for autoimmune hemolytic anemia DVT hypertension apparently the patient did have a prolonged hospitalization at [facility] and subsequently patient was transferred to the local retirement patient apparentl y did have x-ray which was read as fibrocalcific changes and the patient was sent to the ER to rule out TB patient also noticed to have a fever elevated white count tested positive for RSV did have a positive UA and blood cultures are coming back positive with ESBL E. coli. On today's evaluation 10/05/2023 the patient denies having any fever or any chills, patient is breathing comfortably on 2 L nasal cannula oxygen denies any chest pain shortness of breath or cough no nausea vomiting no abdominal pain no diarrhea. Patient did have iron of 12.1, creatinine 0.55 blood culture repeat 09/30/2023 has been negative Objective - Vital Signs Vital signs: Vital Signs Temp 97.8 F 10/05/23 08:00 Pulse 80 10/05/23 12:37 Resp 18 10/05/23 10:55 BP 139/70 10/05/23 08:00 Pulse Ox 95 10/05/23 09:08 FiO2 2 10/05/23 09:08 Intake & Output 10/04/23 10/05/23 10/05/23 18:59 06:59 18:59 Intake Total 118 Output Total 1400 800 Balance -1400 -682 Weight 69 kg 69 kg Intake: Oral 118 Output: Urine 1400 800 Other: Voiding Method Indwelling Catheter Indwelling Catheter Indwelling Catheter # Bowel Movements 2 1 1 - Labs CBC & Chem 7: 10/05/23 08:33 10/03/23 08:35 Labs: Abnormal Lab Results - Last 24 Hours (Table) 10/04/23 10/05/23 Range/Units 08:46 08:33 WBC 11.3 H 12.1 H (3.8-10.6) k/uL RBC 2.54 L (3.80-5.40) m/uL Hgb 8.3 L (11.4-16.0) gm/dL Hct 26.1 L (34.0-46.0) % MCV 102.5 H (80.0-100.0) fL RDW 24.5 H (11.5-15.5) % Neutrophils # (Manual) 10.62 H (1.3-7.7) k/uL Lymphocytes # (Manual) 0.45 L (1.0-4.8) k/uL Nucleated RBCs 11 H (0-0) /100 WBC Macrocytosis Marked A Assessment and Plan (1) ESBL (extended spectrum beta-lactamase) producing bacteria infection Current Visit: Yes Status: Acute Code(s): A49.9 - BACTERIAL INFECTION, UNSPECIFIED; Z16.12 - EXTENDED SPECTRUM BETA LACTAMASE (ESBL) RESISTANCE SNOMED Code(s): 594448112 (2) RSV (respiratory syncytial virus pneumonia) Current Visit: Yes Status: Acute Code(s): J12.1 - RESPIRATORY SYNCYTIAL VIRUS PNEUMONIA SNOMED Code(s): 953955643 (3) UTI (urinary tract infection) Current Visit: Yes Status: Acute Code(s): N39.0 - URINARY TRACT INFECTION, SITE NOT SPECIFIED SNOMED Code(s): 09505939 Plan: 1-patient was in the hospital with sepsis source is multifactorial in this patient who did have predominant respiratory symptoms which could be related to RSV underlying secondary bacterial pneumonia less likely, patient did have a CT of the chest no evidence of any cavitary lesion to suggest TB cardiomegaly with trace bilateral effusion 2-patient did have ESBL E. coli bacteremia source is likely urinary/catheter associated UTI., Unfortunately no urine culture done 3patient blood culture repeated on 09/30/2023 has been negative patient has cleared her bacteremia and the patient has shown clinical improvement 4patient to continue with Invanz 1 g daily for 12 days on discharge we will recommend obtaining a blood cultures x 1 from the Mediport as well as peripherally a week after completion of IV antibiotic therapy to make sure there was no seeding of the port when the patient was bacteremic this was explained to the patient in layman terms 5-Mild leukocytosis more likely steroid related as no evidence of any worsening infection Dictation was produced using [employer] dictation software. please excuse any grammatical, word or spelling errors. Time with Patient: Greater than 30
--- NOTE | 2023-10-05 14:24 | P.DS ---
Providers Date of admission: 09/29/23 12:57 Expected date of discharge: 10/05/23 Attending physician: Clarissa Jansen Consults: 09/29/23 12:41 Consult Physician Routine Consulting Provider: Wan Marroquin Consult Reason/Comments: severe anemia, h/o dvt on eliquis and hemolytic anemia Do you want consulting provider notified?: Yes 09/29/23 12:46 Consult Physician Routine Consulting Provider: Franck Reyna Consult Reason/Comments: sepsis, pna Do you want consulting provider notified?: Yes Primary care physician: Win [facility] Course: 78 years old female with multiple medical problems including history of autoimmune hemolytic anemia status post 6-7 times of blood transfusion over the last 3 years, hypertension, deep venous thrombosis on eliquis Patient state that she's been in the long term/rehab for about 2 months because of difficulty walking, improvement as she can get up with health now and she can walk with a walker with little help as well. Both she still needs rehab as she states. She was sent from [facility] for abnormal chest x-ray suspicious for tuberculosis per report which is place and the system now. Patient currently lying in bed on room air, looks comfortable, not tachypnea at rest. She denies dyspnea but she states she has been coughing with clear phlegm for about 3 days About 3 days ago a Beauchamp catheter has placed for her in the rehab but she cannot tell 1. Currently she denies any dysuria urgency, no flank pain or suprapubic pain or tenderness. No headache dizziness weakness or numbness or blurred vision. Patient states that she has history of hemolytic anemia and she received about 67 blood transfusion over the last 2 years and her funeral home location manager is Dr. Martines. She denies smoking alcohol or illicit drugs. On admission she had a fever of 101.9. Blood pressure was low normal 102/52, heart rate 99, she is saturating 97% on room air. Echo psychosis 21,000, hemoglobin 6.6 came back down to 6.0. Potassium 2.8, total bilirubin 2.8, AST and ALT are within the reference range. C-reactive protein elevated 15.8 and 4calcitonin 6.7. Folate is 19. Urine analysis looks turbid sample Influenza A and type B, SARS (coronavirus) are and detected, RSV test came back positive Chest x-ray: Septal scattered opacity which may represent an atypical pneumonia versus chronic scarring per neurologist. She was started on Rocephin and Zithromax and emergency room with normal saline at 75 mL/h and she was continued on Eliquis a planned to get one of blood transfusion now 09/30/2023 Patient still complains from some tachypnea and coughing but no overt chest pain. She is complaining of from some diarrhea today No abdominal pain, no vomiting She is hemodynamically stable, blood pressure improved, she is currently on room air. No more fever. Labs from today are pending CT of the chest showing no pulmonary cavitary lesion to suspect active DVT but she has trace bilateral pleural effusion suspicious for fluid overload, also she has 4 mm lung nodule. Her pro-calcitonin is elevated 6.7 Her 20. On is pending, urobilinogen was pending, B12 is elevated 10:30, folate is acceptable at 19.4. Anemia studies showing anemia of chronic disease with low TIBC and high ferritin Her blood culture came back positive for resistant E. coli and her antibiotics were switched to meropenem. D5 normal saline was stopped in 1 domes of Lasix IV 4 mg given. She is also on Eliquis 5 mg Emergency Room Clerk/oncologist in a started prednisone 70 mg daily for aortic possible autoimmune hemolytic anemia. However workup for hemolytic anemia was unrevealing with normal haptoglobin and normal indirect bilirubin Resume the care of the patient on 10/03/2023 Patient currently resting in bed with no dyspnea She is coughing a lot with white phlegm, Robitussin is added No chest pain. Patient denies any evidence of GI bleed or blood per rectum. Occult blood in stool checked and was negative GI consult obtained and I discussed the case with them, most likely patient has autoimmune hemolysis rather than GI bleed and they recommended to resume Eliquis with close monitoring of hemoglobin Patient status post IVIG per funeral home location manager team. She remains on some Medrol 60 mg every 8 hours. Continue with meropenem for bilateral atypical pneumonia with resistant E. coli bacteremia. 10/04/2023 Patient is awake alert, she still mildly tachypneic, no chest pain. She is saturating well on room air. The P chest x-ray today showing stable left lower lobe infiltrate She remains on IV antibiotics with meropenem with the plan of discharge her on Invanz 1 g daily however she is not ready for discharge. She still needs to be monitored in the hospital as per discussion with infectious disease team. Also her anemia most likely secondary to autoimmune hemolytic disease, 2 samples of occult blood in the stool were negative. GI service input is appreciated. Eliquis was resumed yesterday, repeat hemoglobin today is a stable at 8.3 compared to 7.8 yesterday. This as there is no evidence of GI bleeds clinically. We will continue Eliquis close monitoring of hemoglobin. Patient remains on IV Solu-Medrol 60 mg for her hemolytic anemia with plan to switch to taper prednisone upon discharge She is status post 2 doses of IVIG. She has a port in the right upper chest where she receives IVIG monthly for the last few years as per patient. 10/05/23 Stable for dc to SNF ID recs in---patient was in the hospital with sepsis source is multifactorial in this patient who did have predominant respiratory symptoms which could be related to RSV underlying secondary bacterial pneumonia less likely, patient did have a CT of the chest no evidence of any cavitary lesion to suggest TB cardiomegaly with trace bilateral effusion -patient did have ESBL E. coli bacteremia source is likely urinary/catheter associated UTI., Unfortunately no urine culture done patient blood culture repeated on 09/30/2023 has been negative patient has cleared her bacteremia and the patient has shown clinical improvement patient to continue with Invanz 1 g daily for 12 days on discharge we will recommend obtaining a blood cultures x 1 from the Mediport as well as peripherally a week after completion of IV antibiotic therapy to make sure there was no seeding of the port when the patient was bacteremic this was explained to the patient in layman terms -Mild leukocytosis more likely steroid related as no evidence of any worsening infection Plan - Discharge Summary New Discharge Prescriptions: New Magnesium Oxide [Mag-Ox] 400 mg PO BID tab Ertapenem [INVanz] 1 gm IVPB Q24H #12 each predniSONE [Deltasone] 60 mg PO DAILY #90 tab Apixaban [Eliquis] 5 mg PO BID tab Ertapenem [INVanz] 1 gm IVPB DAILY each Continue Acetaminophen Tab [Tylenol] 500 mg PO Q8H PRN PRN Reason: Fever And/ Or Pain Metoprolol Tartrate [Lopressor] 50 mg PO BID@0700,1900 Apixaban [Eliquis] 5 mg PO BID Potassium Chloride ER [K-Dur 20] 20 meq PO DIRECTED Tamsulosin [Flomax] 0.4 mg PO HS Alendronate Sodium [Fosamax] 70 mg PO SA@0500 Sucralfate [Carafate] 1 gm PO BID@0700,1600 Pantoprazole [Protonix] 40 mg PO BID Guaifenesin/Pseudoephedrne HCl [Mucinex D ER 1,200-120 mg Tab] 1 tab PO DIRECTED NIFEdipine XL [Procardia XL] 30 mg PO DAILY Multivitamins, Thera [Multivitamin (formulary)] 1 tab PO DAILY Furosemide [Lasix] 20 mg PO DAILY Discharge Medication List Acetaminophen Tab [Tylenol] 500 mg PO Q8H PRN 09/28/23 [History] Alendronate Sodium [Fosamax] 70 mg PO SA@0500 09/28/23 [History] Apixaban [Eliquis] 5 mg PO BID 09/28/23 [History] Furosemide [Lasix] 20 mg PO DAILY 09/28/23 [History] Guaifenesin/Pseudoephedrne HCl [Mucinex D ER 1,200-120 mg Tab] 1 tab PO DIRECTED 09/28/23 [History] Metoprolol Tartrate [Lopressor] 50 mg PO BID@0700,1900 09/28/23 [History] Multivitamins, Thera [Multivitamin (formulary)] 1 tab PO DAILY 09/28/23 [History] NIFEdipine XL [Procardia XL] 30 mg PO DAILY 09/28/23 [History] Pantoprazole [Protonix] 40 mg PO BID 09/28/23 [History] Potassium Chloride ER [K-Dur 20] 20 meq PO DIRECTED 09/28/23 [History] Sucralfate [Carafate] 1 gm PO BID@0700,1600 09/28/23 [History] Tamsulosin [Flomax] 0.4 mg PO HS 09/28/23 [History] Ertapenem [INVanz] 1 gm IVPB Q24H #12 each 10/04/23 [Rx] predniSONE [Deltasone] 60 mg PO DAILY #90 tab 10/04/23 [Rx] Apixaban [Eliquis] 5 mg PO BID tab 10/05/23 [Rx] Ertapenem [INVanz] 1 gm IVPB DAILY each 10/05/23 [Rx] Magnesium Oxide [Mag-Ox] 400 mg PO BID tab 10/05/23 [Rx] Follow up Appointment(s)/Referral(s): Win Coles MD [Primary Care Provider] - 1-2 days [facility], [NON-STAFF] - As Needed Franck Reyna MD [STAFF PHYSICIAN] - 1 Week Ambulatory/Diagnostic Orders: Miscellaneous Lab Order [LAB.AMB] Location: None Selected Activity/Diet/Wound Care/Special Instructions: Discussed with pt that she needs to call her Primary Emergency Room Clerk Dr. Chichi ALVAREZ for prednisone Rx to be sent and taper for when she is discharged from rehab. She verbalized understanding and will have call for that. Pt will cont 60mg of prednisone daily, she is aware and verbalized understanding blood cultures x 1 from the Mediport as well as peripherally a week after completion of IV invanz Discharge Disposition: TRANSFER TO SNF/ECF
[2023-10-05 14:40] VITALS: BP 133/68; TEMP 97.5
[2023-10-05 16:16] VITALS: PULSE 76
== END 2023-10-05 18:47 | DRG 698 ==
LOC: EC 19:20 → 6NMEDSUR 20:15 → OBSVTOIN 09-29 12:57 → 3SCARD 10-01 09:36 → 4SSUR 10-04 22:12
PROVIDERS: ADMIT Hospitalist; ATTEND Hospitalist
PROC: 30233S1 Transfusion of Nonautologous Globulin into Peripheral Vein, Percutaneous Approach (ICD-10-PCS; principal; 2023-09-29)
PROC: 30233N1 Transfusion of Nonautologous Red Blood Cells into Peripheral Vein, Percutaneous Approach (ICD-10-PCS; 2023-10-01)
DX: T83.518A Infection and inflammatory reaction due to other urinary catheter, initial encounter (principal); A41.51 Sepsis due to Escherichia coli [E. coli]; J12.1 Respiratory syncytial virus pneumonia; D59.10 Autoimmune hemolytic anemia, unspecified; Z20.822 Contact with and (suspected) exposure to COVID-19; N39.0 Urinary tract infection, site not specified; D84.9 Immunodeficiency, unspecified; Z16.12 Extended spectrum beta lactamase (ESBL) resistance; I25.10 Atherosclerotic heart disease of native coronary artery without angina pectoris; T38.0X5A Adverse effect of glucocorticoids and synthetic analogues, initial encounter; Y84.6 Urinary catheterization as the cause of abnormal reaction of the patient, or of later complication, without mention of misadventure at the time of the procedure; I10 Essential (primary) hypertension; E87.6 Hypokalemia; R33.8 Other retention of urine; R82.90 Unspecified abnormal findings in urine; Z86.718 Personal history of other venous thrombosis and embolism; D63.8 Anemia in other chronic diseases classified elsewhere; E83.42 Hypomagnesemia; Z79.899 Other long term (current) drug therapy; Z79.83 Long term (current) use of bisphosphonates; Z86.711 Personal history of pulmonary embolism; Z79.01 Long term (current) use of anticoagulants; Y95 Nosocomial condition; X58.XXXA Exposure to other specified factors, initial encounter
CPT/HCPCS: 36415; 71045; 71046; 71260; 80048; 80053; 80076; 81001; 82248; 82272; 82607; 82728; 82746; 83010; 83540; 83550; 83605; 83615; 83735; 84145; 85025; 85027; 85045; 86140; 86480; 86850; 86870; 86880; 86900; 86901; 86920; 87040; 87070; 87077; 87186; 87205; 87449; 87636; 93005; 94640; 94760; 96361; 96374; 99285